=== PATIENT | female | born 1925 | race African-American/Black ===

== ENCOUNTER 2016-07-22 16:25 | Inpatient (IN) | payer MEDICARE, OTHER ==
[~2016-07-22] VITALS: Ht 149.9 cm; Wt 62.8 kg
[~2016-07-22 16:25] MED LIST: AMIO200T2 PO; AMLO-511 PO; ASPI-1132 PO; CLOP75 PO; FAMO20 PO; FURO40 PO; GABA-531 PO; LEVO25TA9 PO; LOSA50TA37 PO; METO-323 PO; NITR.4 BU; PANT40TA25 PO; ROSU20 PO
[2016-07-22 16:37] LABS: GLUCOSE,POINT OF CARE 160 MG/DL (70-110)
[2016-07-22] MEDS ORDERED: POT25TAB5 PO (16:43)
[2016-07-22] MEDS ORDERED: SITA100 PO (16:43)
[2016-07-22] MEDS ORDERED: BUME1TAB30 PO (16:43)
[2016-07-22] MEDS ORDERED: ZARO2.5 PO (16:43)
[2016-07-22] MEDS ORDERED: AUD NEB (16:43)
[2016-07-22] MEDS ORDERED: ALBUTEROL SULFATE 2.5 MG/0.5 ML NEB SOLUTION NEB ONE (16:45)
[2016-07-22] MEDS ORDERED: 0.9% SODIUM CHLORIDE 5 ML NEB SOLUTION NEB ONE (16:55)
[2016-07-22 19:30] LABS: BASOPHILS % (AUTO) 0.3 % (0.0-2.0); EOSINOPHILS % (AUTO) 0.2 % (1.0-6.0); HEMATOCRIT 38.5 % (36-46); HEMOGLOBIN 12.4 g/dL (12.0-16.0); LYMPHOCYTES # (AUTO) 0.5 K/uL (1.0-4.8); LYMPHOCYTES % (AUTO) 13.2 % (22.0-44.0); MEAN CORPUSCULAR HEMOGLOBIN 32.4 pg (26.0-34.0); MEAN CORPUSCULAR HGB CONC 32.2 G/dL (31.0-37.0); MEAN CORPUSCULAR VOLUME 101 fL (80-100); MONOCYTES # (AUTO) 0.4 K/uL (0.1-1.0); MONOCYTES % (AUTO) 8.6 % (2.0-9.0); NEUTROPHILS # (AUTO) 3.2 K/uL (1.8-7.7); NEUTROPHILS % (AUTO) 77.7 % (40.0-70.0); RED BLOOD CELL COUNT(AUTO) 3.83 MIL/uL (4.00-5.20); RED CELL DISTRIBUTION WIDTH 16.7 % (11.5-14.5); WHITE BLOOD COUNT (AUTO) 4.1 K/uL (4.5-11.0)
[2016-07-22 19:39] LABS: ANION GAP 7 mmol/L (8-16); CALCIUM, TOTAL 9.5 mg/dL (8.8-10.5); CARBON DIOXIDE 35 mmol/L (22-29); CHLORIDE 107 mmol/L (98-107); CREATININE 1.42 mg/dL (0.60-1.30); GLOMERULAR FILTR. RATE CALC 42 mL/min (>60); SODIUM SERUM 149 mmol/L (136-145); UREA NITROGEN, BLOOD 44 mg/dL (7-18)
[2016-07-22 19:51] LABS: B-TYPE NATRIURETIC PEPTIDE 1250 pg/mL (0-100)
[2016-07-22 20:00] LABS: INR 1.2 (0.9-1.1); PROTHROMBIN TIME 12.2 SEC (9.4-11.6)
[2016-07-22 20:05] LABS: ALANINE AMINOTRANSFERASE 33 U/L (12-78); ALBUMIN 3.7 g/dL (3.4-5.0); ASPARTATE AMINOTRANSFERASE 33 U/L (15-37); CREATINE KINASE, TOTAL 123 U/L (26-192); TOTAL PROTEIN, SERUM 7.5 g/dL (6.4-8.2)
[2016-07-22 20:21] LABS: PLATELET COUNT (AUTO) 77 K/uL (150-450)
[2016-07-22] MEDS ORDERED: ENOXAPARIN SODIUM 60 MG/0.6 ML PF SYRINGE SQ ONE (20:45)
[2016-07-22] MEDS ORDERED: ASPIRIN 81 MG CHEWABLE TABLET PO ONE (20:45)
[2016-07-22] MEDS: OXYGEN THERAPY IH SCH (20:55)
[2016-07-22] MEDS ORDERED: CefTRIAXone 1 GM/DEXTROSE 50 ML IV ONE (21:00)
[2016-07-22] MEDS ORDERED: ALBUTEROL SULFATE 5 MG/ML 20 ML NEB SOLN [BULK] NEB ONE (21:00)
[2016-07-22] MEDS ORDERED: IPRATROPIUM BROMIDE 0.5 MG/2.5 ML NEB SOLUTION NEB ONE (21:00)
[2016-07-22] MEDS ORDERED: MethylPREDNISolone SOD SUCC 125 MG/2 ML VIAL IVP ONE (21:00)
[2016-07-22 21:41] LABS: ADD UA MICROSCOPIC NO; APPEARANCE,URINE CLEAR (CLEAR); GLUCOSE, URINE (UA) NEGATIVE (NEGATIVE); KETONES,URINE NEGATIVE (NEGATIVE); LEUKOCYTE ESTERASE ,URINE NEGATIVE (NEGATIVE); OCCULT BLOOD,URINE NEGATIVE (NEGATIVE); PROTEIN,URINE TRACE (NEGATIVE)
[2016-07-22 22:10] LABS: LACTIC ACID 0.9 mmol/L (0.4-2.0)
[2016-07-22] MEDS ORDERED: ONDANSETRON HCL 4 MG/2 ML VIAL IVP PRN (23:45)
[2016-07-22] MEDS ORDERED: ACETAMINOPHEN 325 MG TABLET PO PRN (23:45)
[2016-07-22] MEDS ORDERED: 0.9% SODIUM CHLORIDE 10 ML SYRINGE IVP PRN (23:45)
[2016-07-22 23:58] VITALS: BP 159/87
[2016-07-23 00:46] LABS: INFLUENZA TYPE B NEGATIVE FOR TYPE B (NEGATIVE)
[2016-07-23 05:19] VITALS: BP 157/91
[2016-07-23 06:36] LABS: BASOPHILS % (AUTO) 0.1 % (0.0-2.0); EOSINOPHILS % (AUTO) 0 % (1.0-6.0); HEMATOCRIT 38.4 % (36-46); HEMOGLOBIN 12.4 g/dL (12.0-16.0); LYMPHOCYTES # (AUTO) 0.3 K/uL (1.0-4.8); LYMPHOCYTES % (AUTO) 9.7 % (22.0-44.0); MEAN CORPUSCULAR HEMOGLOBIN 32.4 pg (26.0-34.0); MEAN CORPUSCULAR HGB CONC 32.3 G/dL (31.0-37.0); MEAN CORPUSCULAR VOLUME 101 fL (80-100); MONOCYTES # (AUTO) 0.1 K/uL (0.1-1.0); MONOCYTES % (AUTO) 1.6 % (2.0-9.0); NEUTROPHILS # (AUTO) 2.9 K/uL (1.8-7.7); PLATELET COUNT (AUTO) 74 K/uL (150-450); RED BLOOD CELL COUNT(AUTO) 3.82 MIL/uL (4.00-5.20); RED CELL DISTRIBUTION WIDTH 17.3 % (11.5-14.5); WHITE BLOOD COUNT (AUTO) 3.3 K/uL (4.5-11.0)
[2016-07-23 06:47] LABS: NEUTROPHILS % (AUTO) 88.6 % (40.0-70.0)
[2016-07-23 07:21] LABS: ALBUMIN 3.5 g/dL (3.4-5.0); CREATININE 1.6 mg/dL (0.60-1.30); POTASSIUM 4.1 mmol/L (3.5-5.1); TOTAL PROTEIN, SERUM 7.3 g/dL (6.4-8.2)
[2016-07-23] MEDS: OXYGEN THERAPY IH SCH ×2 (07:26→20:47)
[2016-07-23 07:43] LABS: RBC MORPHOLOGY COMMENT ABNORMAL RBC MORPH
[2016-07-23 08:28] VITALS: BP 159/82
[2016-07-23] MEDS ORDERED: IPRATROPIUM BROMIDE 0.5 MG/2.5 ML NEB SOLUTION NEB ONE (09:45)
[2016-07-23] MEDS ORDERED: ALBUTEROL SULFATE 2.5 MG/0.5 ML NEB SOLUTION NEB ONE (09:45)
[2016-07-23 10:11] VITALS: BP 136/80
[2016-07-23] MEDS ORDERED: AMIODARONE HCL 150 MG in DEXTROSE 5%-WATER 97 ML IV ONE (10:35)
[2016-07-23] MEDS ORDERED: AMIODARONE HCL 360 MG in DEXTROSE 5%-WATER 242.8 ML IV ONE (10:45)
[2016-07-23] MEDS ORDERED: MORPHINE SULFATE 2 MG/ML SYRINGE IVP PRN (10:45)
[2016-07-23] MEDS ORDERED: ASPIRIN 81 MG CHEWABLE TABLET PO SCH (10:45)
[2016-07-23] MEDS: ALBUTEROL SULFATE 2.5 MG/0.5 ML NEB SOLUTION NEB SCH ×4 (11:00→23:01)
[2016-07-23] MEDS: GABAPENTIN 300 MG CAPSULE PO SCH (11:00)
[2016-07-23 11:07] LABS: GLUCOSE,POINT OF CARE 239 MG/DL (70-110)
[2016-07-23 11:07] LABS: GLUCOSE,POINT OF CARE 290 MG/DL (70-110)
[2016-07-23] MEDS: LEVOTHYROXINE SODIUM 100 MCG TABLET PO SCH (11:48)
[2016-07-23] MEDS: LOSARTAN POTASSIUM 50 MG TABLET PO SCH (11:49)
[2016-07-23] MEDS: CLOPIDOGREL BISULFATE 75 MG TABLET PO SCH (11:53)
[2016-07-23] MEDS: ASPIRIN 81 MG EC TABLET PO SCH (11:54)
[2016-07-23] MEDS: BUMETANIDE 1 MG TABLET PO SCH ×2 (11:55→20:48)
[2016-07-23] MEDS ORDERED: NITROGLYCERIN 2% (1 GM=INCH) PACKET TP SCH (12:00)
[2016-07-23 14:36] LABS: GLUCOSE,POINT OF CARE 250 MG/DL (70-110)
[2016-07-23] MEDS ORDERED: 0.9% SODIUM CHLORIDE 5 ML NEB SOLUTION NEB ONE ×2 (15:15→22:57)
[2016-07-23 16:14] VITALS: BP 147/106
[2016-07-23] MEDS ORDERED: AMIODARONE HCL 540 MG in DEXTROSE 5%-WATER 239.2 ML IV ONE (16:45)
[2016-07-23] MEDS ORDERED: NITROGLYCERIN 2% (1 GM=INCH) PACKET TP PRN (17:00)
[2016-07-23] MEDS ORDERED: ONDANSETRON HCL 4 MG/2 ML VIAL IVP PRN (17:00)
[2016-07-23] MEDS ORDERED: ACETAMINOPHEN 325 MG TABLET PO PRN (17:00)
[2016-07-23] MEDS ORDERED: DEXTROSE 50%-WATER 25 GM/50 ML SYRINGE IVP PRN (17:00)
[2016-07-23] MEDS: NITROGLYCERIN 2% (1 GM=INCH) PACKET TP SCH (17:43)
[2016-07-23] MEDS: INSULIN ASPART 100 UNITS/ML SQ PRN ×2 (17:53→20:55)
[2016-07-23 19:26] VITALS: BP 133/87
[2016-07-23] MEDS: METOPROLOL SUCCINATE 25 MG ER TABLET PO SCH (20:48)
[2016-07-23 23:25] VITALS: BP 125/96
[2016-07-24] MEDS: HEPARIN SODIUM,PORCINE 5,000 UNITS/ML VIAL SQ SCH ×2 (00:27→16:00)
[2016-07-24] MEDS: NITROGLYCERIN 2% (1 GM=INCH) PACKET TP SCH ×4 (00:27→18:10)
[2016-07-24] MEDS ORDERED: 0.9% SODIUM CHLORIDE 5 ML NEB SOLUTION NEB ONE ×6 (02:45→23:09)
[2016-07-24] MEDS: ALBUTEROL SULFATE 2.5 MG/0.5 ML NEB SOLUTION NEB SCH ×6 (02:50→23:19)
[2016-07-24 04:02] LABS: GLUCOSE COMMENT 1 Received Meds; GLUCOSE,POINT OF CARE 264 MG/DL (70-110)
[2016-07-24 04:28] VITALS: BP 134/89
[2016-07-24] MEDS: LEVOTHYROXINE SODIUM 100 MCG TABLET PO SCH (06:02)
[2016-07-24 06:31] LABS: GLUCOSE,POINT OF CARE 81 MG/DL (70-110)
[2016-07-24 06:41] LABS: BASOPHILS % (AUTO) 0.4 % (0.0-2.0); EOSINOPHILS % (AUTO) 0 % (1.0-6.0); HEMOGLOBIN 12.2 g/dL (12.0-16.0); LYMPHOCYTES # (AUTO) 0.7 K/uL (1.0-4.8); LYMPHOCYTES % (AUTO) 10.6 % (22.0-44.0); MEAN CORPUSCULAR HEMOGLOBIN 32.3 pg (26.0-34.0); MEAN CORPUSCULAR HGB CONC 32.1 G/dL (31.0-37.0); MEAN CORPUSCULAR VOLUME 101 fL (80-100); MONOCYTES # (AUTO) 0.6 K/uL (0.1-1.0); MONOCYTES % (AUTO) 9.1 % (2.0-9.0); NEUTROPHILS # (AUTO) 5.1 K/uL (1.8-7.7); NEUTROPHILS % (AUTO) 79.9 % (40.0-70.0); PLATELET COUNT (AUTO) 92 K/uL (150-450); RED BLOOD CELL COUNT(AUTO) 3.78 MIL/uL (4.00-5.20); RED CELL DISTRIBUTION WIDTH 16.7 % (11.5-14.5); WHITE BLOOD COUNT (AUTO) 6.4 K/uL (4.5-11.0)
[2016-07-24 07:11] LABS: RBC MORPHOLOGY COMMENT ABNORMAL RBC MORPH
[2016-07-24 07:22] VITALS: BP 129/85
[2016-07-24] MEDS: OXYGEN THERAPY IH SCH ×2 (07:25→20:20)
[2016-07-24 07:27] LABS: ALBUMIN 3.3 g/dL (3.4-5.0); BILIRUBIN,TOTAL 0.8 mg/dL (0.1-1.0); CALCIUM, TOTAL 8.5 mg/dL (8.8-10.5); CREATININE 1.66 mg/dL (0.60-1.30); POTASSIUM 3.4 mmol/L (3.5-5.1); THYROID STIMULATING HORMONE 5.02 uIU/mL (0.36-3.74); TOTAL PROTEIN, SERUM 6.8 g/dL (6.4-8.2)
[2016-07-24] MEDS: PANTOPRAZOLE SODIUM 40 MG DR TABLET PO SCH (08:34)
[2016-07-24] MEDS: GABAPENTIN 300 MG CAPSULE PO SCH (08:34)
[2016-07-24] MEDS: ASPIRIN 81 MG EC TABLET PO SCH (08:34)
[2016-07-24] MEDS: CLOPIDOGREL BISULFATE 75 MG TABLET PO SCH (08:34)
[2016-07-24] MEDS: METOPROLOL SUCCINATE 25 MG ER TABLET PO SCH ×2 (08:37→20:20)
[2016-07-24] MEDS: SitaGLIPtin PHOSPHATE 100 MG TABLET PO SCH (09:00)
[2016-07-24] MEDS ORDERED: AMIODARONE HCL 200 MG TABLET PO SCH (09:00)
[2016-07-24] MEDS ORDERED: AMIODARONE HCL 750 MG in DEXTROSE 5%-WATER 485 ML IV SCH (10:45)
[2016-07-24 10:48] VITALS: BP 143/90
[2016-07-24] MEDS: LOSARTAN POTASSIUM 50 MG TABLET PO SCH (11:09)
[2016-07-24] MEDS: BUMETANIDE 1 MG TABLET PO SCH ×2 (11:10→20:21)
[2016-07-24] MEDS ORDERED: POTASSIUM CHLORIDE 10% 40 MEQ/30 ML LIQUID UDCUP PO ONE (13:00)
[2016-07-24 16:00] VITALS: BP 123/88
[2016-07-24 19:55] VITALS: BP 107/78
[2016-07-24 23:43] VITALS: BP 126/90
[2016-07-25] MEDS: NITROGLYCERIN 2% (1 GM=INCH) PACKET TP SCH ×4 (00:18→18:49)
[2016-07-25] MEDS: AMIODARONE HCL 200 MG TABLET PO SCH ×3 (00:18→20:53)
[2016-07-25] MEDS: ALBUTEROL SULFATE 2.5 MG/0.5 ML NEB SOLUTION NEB SCH ×7 (02:35→23:00)
[2016-07-25 05:07] VITALS: BP 146/86
[2016-07-25] MEDS: LEVOTHYROXINE SODIUM 100 MCG TABLET PO SCH (05:45)
[2016-07-25] MEDS: INSULIN ASPART 100 UNITS/ML SQ PRN ×3 (05:46→17:48)
[2016-07-25 06:00] LABS: BASOPHILS # (AUTO) 0.01 K/uL (0.00-0.20); BASOPHILS % (AUTO) 0.3 % (0.0-2.0); EOSINOPHILS # (AUTO) 0.01 K/uL (0.00-0.70); HEMATOCRIT 35.5 % (36-46); HEMOGLOBIN 11.7 g/dL (12.0-16.0); LYMPHOCYTES # (AUTO) 0.6 K/uL (1.0-4.8); LYMPHOCYTES % (AUTO) 13.7 % (22.0-44.0); MEAN CORPUSCULAR HEMOGLOBIN 33.1 pg (26.0-34.0); MEAN CORPUSCULAR HGB CONC 33.1 G/dL (31.0-37.0); MEAN CORPUSCULAR VOLUME 100 fL (80-100); MONOCYTES # (AUTO) 0.5 K/uL (0.1-1.0); MONOCYTES % (AUTO) 10.2 % (2.0-9.0); NEUTROPHILS # (AUTO) 3.4 K/uL (1.8-7.7); NEUTROPHILS % (AUTO) 75.5 % (40.0-70.0); PLATELET COUNT (AUTO) 77 K/uL (150-450); RED BLOOD CELL COUNT(AUTO) 3.54 MIL/uL (4.00-5.20); RED CELL DISTRIBUTION WIDTH 17.5 % (11.5-14.5); WHITE BLOOD COUNT (AUTO) 4.4 K/uL (4.5-11.0)
[2016-07-25 06:22] LABS: GLUCOSE,POINT OF CARE 129 MG/DL (70-110)
[2016-07-25 06:22] LABS: GLUCOSE COMMENT 1 Received Meds; GLUCOSE,POINT OF CARE 208 MG/DL (70-110)
[2016-07-25 06:22] LABS: GLUCOSE,POINT OF CARE 103 MG/DL (70-110)
[2016-07-25 06:25] LABS: ALBUMIN 3.2 g/dL (3.4-5.0); BILIRUBIN,TOTAL 0.6 mg/dL (0.1-1.0); CALCIUM, TOTAL 8.5 mg/dL (8.8-10.5); CHOL/HDL RATIO 2.5 (3.9-5.7); CREATININE 1.92 mg/dL (0.60-1.30); POTASSIUM 3.8 mmol/L (3.5-5.1); TOTAL PROTEIN, SERUM 6.6 g/dL (6.4-8.2)
[2016-07-25] MEDS ORDERED: 0.9% SODIUM CHLORIDE 5 ML NEB SOLUTION NEB ONE ×4 (07:08→19:37)
[2016-07-25 07:33] VITALS: BP 124/79
[2016-07-25] MEDS: SitaGLIPtin PHOSPHATE 100 MG TABLET PO SCH (08:49)
[2016-07-25] MEDS: OXYGEN THERAPY IH SCH ×2 (08:49→20:53)
[2016-07-25] MEDS: HEPARIN SODIUM,PORCINE 5,000 UNITS/ML VIAL SQ SCH ×3 (08:49→15:56)
[2016-07-25] MEDS: METOPROLOL SUCCINATE 25 MG ER TABLET PO SCH ×2 (08:50→20:53)
[2016-07-25] MEDS: ASPIRIN 81 MG EC TABLET PO SCH (08:50)
[2016-07-25] MEDS: CLOPIDOGREL BISULFATE 75 MG TABLET PO SCH (08:50)
[2016-07-25] MEDS: PANTOPRAZOLE SODIUM 40 MG DR TABLET PO SCH (08:50)
[2016-07-25] MEDS: LOSARTAN POTASSIUM 50 MG TABLET PO SCH (08:50)
[2016-07-25] MEDS: GABAPENTIN 300 MG CAPSULE PO SCH (08:50)
[2016-07-25 11:24] VITALS: BP 127/77
[2016-07-25] MEDS ORDERED: METOLAZONE 2.5 MG TABLET PO SCH (14:30)
[2016-07-25 15:19] VITALS: BP 123/83
[2016-07-25 19:14] VITALS: BP 115/76
[2016-07-25 23:48] VITALS: BP 110/73
[2016-07-26] MEDS: NITROGLYCERIN 2% (1 GM=INCH) PACKET TP SCH ×4 (01:05→18:00)
[2016-07-26] MEDS: ALBUTEROL SULFATE 2.5 MG/0.5 ML NEB SOLUTION NEB SCH ×6 (03:00→23:00)
[2016-07-26 05:27] VITALS: BP 117/79
[2016-07-26] MEDS: LEVOTHYROXINE SODIUM 100 MCG TABLET PO SCH (05:35)
[2016-07-26 06:41] LABS: CALCIUM, TOTAL 8.2 mg/dL (8.8-10.5); CREATININE 1.61 mg/dL (0.60-1.30); POTASSIUM 3.2 mmol/L (3.5-5.1)
[2016-07-26 06:52] LABS: GLUCOSE COMMENT 1 Received Meds; GLUCOSE,POINT OF CARE 149 MG/DL (70-110)
[2016-07-26] MEDS ORDERED: 0.9% SODIUM CHLORIDE 5 ML NEB SOLUTION NEB ONE ×3 (07:14→19:21)
[2016-07-26 08:24] VITALS: BP 138/84
[2016-07-26] MEDS: ASPIRIN 81 MG EC TABLET PO SCH (08:37)
[2016-07-26] MEDS: SitaGLIPtin PHOSPHATE 100 MG TABLET PO SCH (08:37)
[2016-07-26] MEDS: METOPROLOL SUCCINATE 25 MG ER TABLET PO SCH ×2 (08:37→21:08)
[2016-07-26] MEDS: LOSARTAN POTASSIUM 50 MG TABLET PO SCH (08:37)
[2016-07-26] MEDS: AMIODARONE HCL 200 MG TABLET PO SCH ×2 (08:37→21:08)
[2016-07-26] MEDS: CLOPIDOGREL BISULFATE 75 MG TABLET PO SCH (08:37)
[2016-07-26] MEDS: PANTOPRAZOLE SODIUM 40 MG DR TABLET PO SCH (08:37)
[2016-07-26] MEDS: GABAPENTIN 300 MG CAPSULE PO SCH (08:38)
[2016-07-26] MEDS: HEPARIN SODIUM,PORCINE 5,000 UNITS/ML VIAL SQ SCH ×3 (08:38→17:03)
[2016-07-26] MEDS: OXYGEN THERAPY IH SCH ×2 (08:45→19:23)
[2016-07-26 11:12] VITALS: BP 113/70
[2016-07-26] MEDS: INSULIN ASPART 100 UNITS/ML SQ PRN ×2 (12:03→17:59)
[2016-07-26 15:45] VITALS: BP 129/72
[2016-07-26] MEDS ORDERED: POTASSIUM CHLORIDE 20 MEQ ER TABLET PO ONE (16:45)
[2016-07-26] MEDS ORDERED: LACTULOSE 20 GM/30 ML SOLUTION UDCUP PO ONE (16:45)
[2016-07-26 20:03] LABS: GLUCOSE COMMENT 1 Received Meds; GLUCOSE,POINT OF CARE 148 MG/DL (70-110)
[2016-07-26 20:05] VITALS: BP 125/76
[2016-07-26 23:47] VITALS: BP 108/67
[2016-07-27] MEDS: NITROGLYCERIN 2% (1 GM=INCH) PACKET TP SCH ×4 (00:27→17:25)
[2016-07-27] MEDS: HEPARIN SODIUM,PORCINE 5,000 UNITS/ML VIAL SQ SCH ×3 (00:27→16:49)
[2016-07-27 00:35] VITALS: BP 126/68
[2016-07-27] MEDS ORDERED: 0.9% SODIUM CHLORIDE 5 ML NEB SOLUTION NEB ONE ×3 (01:39→11:11)
[2016-07-27] MEDS: ALBUTEROL SULFATE 2.5 MG/0.5 ML NEB SOLUTION NEB SCH ×4 (03:53→15:36)
[2016-07-27 04:31] VITALS: BP 127/86
[2016-07-27] MEDS: LEVOTHYROXINE SODIUM 100 MCG TABLET PO SCH (06:21)
[2016-07-27 06:51] LABS: GLUCOSE COMMENT 1 Received Meds; GLUCOSE,POINT OF CARE 162 MG/DL (70-110)
[2016-07-27 07:06] VITALS: BP 157/91
[2016-07-27] MEDS: OXYGEN THERAPY IH SCH (08:45)
[2016-07-27] MEDS: ASPIRIN 81 MG EC TABLET PO SCH (08:46)
[2016-07-27] MEDS: LOSARTAN POTASSIUM 50 MG TABLET PO SCH (08:46)
[2016-07-27] MEDS: CLOPIDOGREL BISULFATE 75 MG TABLET PO SCH (08:47)
[2016-07-27] MEDS: SitaGLIPtin PHOSPHATE 100 MG TABLET PO SCH (08:47)
[2016-07-27] MEDS: AMIODARONE HCL 200 MG TABLET PO SCH (08:47)
[2016-07-27] MEDS: GABAPENTIN 300 MG CAPSULE PO SCH (08:47)
[2016-07-27] MEDS: PANTOPRAZOLE SODIUM 40 MG DR TABLET PO SCH (08:48)
[2016-07-27] MEDS: METOPROLOL SUCCINATE 25 MG ER TABLET PO SCH (08:48)
[2016-07-27 11:16] VITALS: BP 126/75
[2016-07-27] MEDS: INSULIN ASPART 100 UNITS/ML SQ PRN ×2 (11:51→17:33)
[2016-07-27 12:07] LABS: GLUCOSE COMMENT 1 Received Meds; GLUCOSE,POINT OF CARE 209 MG/DL (70-110)
[2016-07-27 15:41] VITALS: BP 116/79
[2016-07-27] MEDS ORDERED: AMIO200T44 PO (15:50)
[2016-07-27] MEDS ORDERED: BUME1TAB30 PO (15:51)
[2016-07-27 19:27] LABS: GLUCOSE,POINT OF CARE 127 MG/DL (70-110)
[2016-07-30 14:07] LABS: GLUCOSE COMMENT 1 Received Meds; GLUCOSE,POINT OF CARE 243 MG/DL (70-110)
[2016-07-30 14:12] LABS: GLUCOSE,POINT OF CARE 208 MG/DL (70-110)
[2016-07-30 14:12] LABS: GLUCOSE COMMENT 1 Received Meds; GLUCOSE,POINT OF CARE 150 MG/DL (70-110)
[2016-07-30 14:12] LABS: GLUCOSE COMMENT 1 Received Meds; GLUCOSE,POINT OF CARE 171 MG/DL (70-110)
[2016-07-30 14:12] LABS: GLUCOSE,POINT OF CARE 183 MG/DL (70-110)
[2016-08-05 06:58] LABS: GLUCOSE,POINT OF CARE 114 MG/DL (70-110)
[2016-08-06] MEDS ORDERED: METOLAZONE 2.5 MG TABLET PO SCH (09:00)
[2016-11-01] MEDS ORDERED: AUD NEB (12:52)
[2016-11-01] MEDS ORDERED: ACET250T27 PO ×2 (12:52→12:53)
[2016-11-01] MEDS ORDERED: FLUT16H NASAL (13:12)
[2016-11-01] MEDS ORDERED: METO-325 PO (13:13)
[2016-11-01] MEDS ORDERED: LEVO250 PO (13:15)
== END 2016-07-27 18:30 | disposition home or self-care (01) | DRG 280 ==
LOC: EMS 16:28 → AHU 07-23 07:26 → 5N 07-23 15:55 → 5S 07-26 18:00
PROVIDERS: ADMIT Family Medicine; ATTEND Family Medicine
DX: I21.4 Non-ST elevation (NSTEMI) myocardial infarction (principal); I50.23 Acute on chronic systolic (congestive) heart failure; I48.91 Unspecified atrial fibrillation; J44.9 Chronic obstructive pulmonary disease, unspecified; E11.9 Type 2 diabetes mellitus without complications; E78.5 Hyperlipidemia, unspecified; I11.0 Hypertensive heart disease with heart failure; D69.6 Thrombocytopenia, unspecified; I25.10 Atherosclerotic heart disease of native coronary artery without angina pectoris; I25.5 Ischemic cardiomyopathy; J45.909 Unspecified asthma, uncomplicated; N28.9 Disorder of kidney and ureter, unspecified; Z99.81 Dependence on supplemental oxygen; I25.2 Old myocardial infarction; Z95.5 Presence of coronary angioplasty implant and graft; Z98.890 Other specified postprocedural states; Z88.8 Allergy status to other drugs, medicaments and biological substances; Z88.1 Allergy status to other antibiotic agents; Z79.02 Long term (current) use of antithrombotics/antiplatelets; Z79.899 Other long term (current) drug therapy
CPT/HCPCS: 82962; 83036; 83605; 83735; 84132; 84443; 85379; 87040; 87804; 93005; 93306; 94640; 96365; 96366; 96372; 96375; 97162; 97166; 99291; J0282; J0696; J1644; J1650; J2930; J7060

== ENCOUNTER 2016-07-29 07:34 | Inpatient (IN) | payer MEDICARE ==
[~2016-07-29] VITALS: Ht 149.9 cm; Wt 55.3 kg
[~2016-07-29 07:34] MED LIST changes: +AMIO200T44 PO; +AUD NEB; +BUME1TAB30 PO; +POT25TAB5 PO; +SITA100 PO; +ZARO2.5 PO
[2016-07-29] MEDS ORDERED: FOLI1 PO (07:44)
[2016-07-29] MEDS ORDERED: METO100XL PO (07:44)
[2016-07-29] MEDS ORDERED: BENZ-26 PO (07:44)
[2016-07-29] MEDS ORDERED: ATOR40TA28 PO (07:44)
[2016-07-29 08:28] LABS: BASOPHILS % (AUTO) 0.5 % (0.0-2.0); EOSINOPHILS % (AUTO) 0.9 % (1.0-6.0); HEMATOCRIT 41.3 % (36-46); HEMOGLOBIN 13.4 g/dL (12.0-16.0); LYMPHOCYTES # (AUTO) 0.5 K/uL (1.0-4.8); LYMPHOCYTES % (AUTO) 13.2 % (22.0-44.0); MEAN CORPUSCULAR HEMOGLOBIN 32.7 pg (26.0-34.0); MEAN CORPUSCULAR HGB CONC 32.3 G/dL (31.0-37.0); MEAN CORPUSCULAR VOLUME 101 fL (80-100); MONOCYTES # (AUTO) 0.3 K/uL (0.1-1.0); MONOCYTES % (AUTO) 7.1 % (2.0-9.0); NEUTROPHILS # (AUTO) 3.1 K/uL (1.8-7.7); NEUTROPHILS % (AUTO) 78.3 % (40.0-70.0); PLATELET COUNT (AUTO) 103 K/uL (150-450); RED BLOOD CELL COUNT(AUTO) 4.08 MIL/uL (4.00-5.20); WHITE BLOOD COUNT (AUTO) 3.9 K/uL (4.5-11.0)
[2016-07-29 08:37] LABS: ANION GAP 8 mmol/L (8-16); CALCIUM, TOTAL 8.6 mg/dL (8.8-10.5); CARBON DIOXIDE 35 mmol/L (22-29); CHLORIDE 101 mmol/L (98-107); CREATININE 1.23 mg/dL (0.60-1.30); GLOMERULAR FILTR. RATE CALC 50 mL/min (>60); POTASSIUM 3.5 mmol/L (3.5-5.1); SODIUM SERUM 144 mmol/L (136-145); UREA NITROGEN, BLOOD 36 mg/dL (7-18)
[2016-07-29] MEDS ORDERED: IPRATROPIUM BROMIDE 0.5 MG/2.5 ML NEB SOLUTION NEB ONE (08:45)
[2016-07-29] MEDS ORDERED: ALBUTEROL SULFATE 2.5 MG/0.5 ML NEB SOLUTION NEB ONE (08:45)
[2016-07-29 08:51] LABS: B-TYPE NATRIURETIC PEPTIDE 1010 pg/mL (0-100)
[2016-07-29 09:02] LABS: ALANINE AMINOTRANSFERASE 26 U/L (12-78); ALBUMIN 3.5 g/dL (3.4-5.0); ASPARTATE AMINOTRANSFERASE 27 U/L (15-37); CREATINE KINASE MB 1.8 ng/mL (0-5); CREATINE KINASE, TOTAL 100 U/L (26-192); TOTAL PROTEIN, SERUM 7.5 g/dL (6.4-8.2)
[2016-07-29 09:23] LABS: RBC MORPHOLOGY COMMENT ABNORMAL RBC MORPH
[2016-07-29] MEDS ORDERED: NITROGLYCERIN 2% (1 GM=INCH) PACKET TP ONE (11:00)
[2016-07-29] MEDS ORDERED: ASPIRIN 81 MG CHEWABLE TABLET PO ONE (11:00)
[2016-07-29 11:25] LABS: APPEARANCE,URINE CLEAR (CLEAR); GLUCOSE, URINE (UA) NEGATIVE (NEGATIVE); KETONES,URINE NEGATIVE (NEGATIVE); LEUKOCYTE ESTERASE ,URINE NEGATIVE (NEGATIVE); OCCULT BLOOD,URINE NEGATIVE (NEGATIVE); PH,URINE 6.5 (5.0-8.0); PROTEIN,URINE NEGATIVE (NEGATIVE)
[2016-07-29 11:32] LABS: ADD UA MICROSCOPIC NO
[2016-07-29 11:34] VITALS: BP 143/97
[2016-07-29] MEDS ORDERED: ONDANSETRON HCL 4 MG/2 ML VIAL IVP PRN (13:45)
[2016-07-29] MEDS ORDERED: IPRATROPIUM BROMIDE 0.5 MG/2.5 ML NEB SOLUTION NEB PRN (13:45)
[2016-07-29] MEDS ORDERED: BISACODYL 10 MG RECTAL RECTAL SUPPOSITORY PR PRN (13:45)
[2016-07-29] MEDS ORDERED: MAGNESIUM HYDROXIDE SUSPENSION 30 ML UDCUP PO PRN (13:45)
[2016-07-29] MEDS ORDERED: ALBUTEROL SULFATE 2.5 MG/0.5 ML NEB SOLUTION NEB PRN (13:45)
[2016-07-29] MEDS ORDERED: MORPHINE SULFATE 2 MG/ML SYRINGE IVP PRN (14:00)
[2016-07-29] MEDS ORDERED: DEXTROSE 50%-WATER 25 GM/50 ML SYRINGE IVP PRN (14:15)
[2016-07-29 15:09] VITALS: BP 118/73
[2016-07-29] MEDS: NITROGLYCERIN 2% (1 GM=INCH) PACKET TP SCH (17:52)
[2016-07-29] MEDS: INSULIN ASPART 100 UNITS/ML SQ PRN ×2 (17:56→20:14)
[2016-07-29 19:20] VITALS: BP 123/73
[2016-07-29] MEDS: BUMETANIDE 0.25 MG/ML 10 ML VIAL IVP SCH (20:18)
[2016-07-29] MEDS: BENZONATATE 100 MG CAPSULE PO SCH (20:18)
[2016-07-29] MEDS: ATORVASTATIN CALCIUM 40 MG TABLET PO SCH (20:18)
[2016-07-29] MEDS ORDERED: FUROSEMIDE 20 MG/2 ML VIAL IVP SCH (21:00)
[2016-07-29 21:01] LABS: GLUCOSE,POINT OF CARE 132 MG/DL (70-110)
[2016-07-29 21:02] LABS: GLUCOSE COMMENT 1 Received Meds; GLUCOSE,POINT OF CARE 165 MG/DL (70-110)
[2016-07-29 21:02] LABS: GLUCOSE COMMENT 1 Received Meds; GLUCOSE,POINT OF CARE 162 MG/DL (70-110)
[2016-07-29 23:21] VITALS: BP 117/78
[2016-07-29] MEDS: ACETAMINOPHEN 500 MG TABLET PO PRN (23:25)
[2016-07-30 04:54] VITALS: BP 135/87
[2016-07-30 05:28] LABS: BASOPHILS % (AUTO) 0.3 % (0.0-2.0); EOSINOPHILS % (AUTO) 0.3 % (1.0-6.0); HEMATOCRIT 36.5 % (36-46); HEMOGLOBIN 11.8 g/dL (12.0-16.0); LYMPHOCYTES # (AUTO) 0.5 K/uL (1.0-4.8); MEAN CORPUSCULAR HEMOGLOBIN 32.6 pg (26.0-34.0); MEAN CORPUSCULAR HGB CONC 32.2 G/dL (31.0-37.0); MEAN CORPUSCULAR VOLUME 101 fL (80-100); MONOCYTES # (AUTO) 0.4 K/uL (0.1-1.0); MONOCYTES % (AUTO) 9.4 % (2.0-9.0); NEUTROPHILS # (AUTO) 3.7 K/uL (1.8-7.7); PLATELET COUNT (AUTO) 101 K/uL (150-450); RED BLOOD CELL COUNT(AUTO) 3.61 MIL/uL (4.00-5.20); RED CELL DISTRIBUTION WIDTH 17.4 % (11.5-14.5); WHITE BLOOD COUNT (AUTO) 4.6 K/uL (4.5-11.0)
[2016-07-30] MEDS: NITROGLYCERIN 2% (1 GM=INCH) PACKET TP SCH ×5 (05:44→23:50)
[2016-07-30 06:24] LABS: ANION GAP 5 mmol/L (8-16); CALCIUM, TOTAL 8.2 mg/dL (8.8-10.5); CARBON DIOXIDE 35 mmol/L (22-29); CHLORIDE 104 mmol/L (98-107); CHOL/HDL RATIO 2.1 (3.9-5.7); CREATINE KINASE, TOTAL 72 U/L (26-192); CREATININE 1.23 mg/dL (0.60-1.30); GLOMERULAR FILTR. RATE CALC 50 mL/min (>60); POTASSIUM 3.9 mmol/L (3.5-5.1); SODIUM SERUM 144 mmol/L (136-145); THYROID STIMULATING HORMONE 3.97 uIU/mL (0.36-3.74); UREA NITROGEN, BLOOD 34 mg/dL (7-18)
[2016-07-30 07:02] LABS: HEMOGLOBIN A1C 7.8 % (4.5-6.2)
[2016-07-30 07:17] VITALS: BP 135/81
[2016-07-30 07:44] LABS: RBC MORPHOLOGY COMMENT ABNORMAL RBC MORPH
[2016-07-30 09:07] LABS: GLUCOSE,POINT OF CARE 77 MG/DL (70-110)
[2016-07-30] MEDS: ENOXAPARIN SODIUM 40 MG/0.4 ML PF SYRINGE SQ SCH (10:47)
[2016-07-30] MEDS: GABAPENTIN 300 MG CAPSULE PO SCH (10:51)
[2016-07-30] MEDS: AMIODARONE HCL 200 MG TABLET PO SCH (10:52)
[2016-07-30] MEDS: ACETAMINOPHEN 500 MG TABLET PO PRN (10:52)
[2016-07-30] MEDS: BENZONATATE 100 MG CAPSULE PO SCH ×2 (10:53→20:38)
[2016-07-30] MEDS: CLOPIDOGREL BISULFATE 75 MG TABLET PO SCH (10:53)
[2016-07-30] MEDS: METOPROLOL SUCCINATE 50 MG ER TABLET PO SCH (10:53)
[2016-07-30] MEDS: LOSARTAN POTASSIUM 50 MG TABLET PO SCH (10:53)
[2016-07-30] MEDS: ASPIRIN 81 MG EC TABLET PO SCH (10:53)
[2016-07-30] MEDS: FOLIC ACID 1 MG TABLET PO SCH (10:53)
[2016-07-30 11:32] VITALS: BP 143/82
[2016-07-30] MEDS: PANTOPRAZOLE SODIUM 40 MG/VIAL IVP SCH (14:12)
[2016-07-30] MEDS: BUMETANIDE 0.25 MG/ML 10 ML VIAL IVP SCH ×2 (14:19→20:38)
[2016-07-30 15:49] VITALS: BP 121/70
[2016-07-30] MEDS: INSULIN ASPART 100 UNITS/ML SQ PRN ×2 (17:50→20:42)
[2016-07-30] MEDS: MAGNESIUM OXIDE 400 MG TABLET PO PRN ×3 (18:57→23:50)
[2016-07-30] MEDS ORDERED: 0.9% SODIUM CHLORIDE 10 ML SYRINGE IVP PRN (20:00)
[2016-07-30 20:18] VITALS: BP 121/75
[2016-07-30] MEDS: ATORVASTATIN CALCIUM 40 MG TABLET PO SCH (20:38)
[2016-07-31 00:09] VITALS: BP 100/69
[2016-07-31 05:47] VITALS: BP 139/83
[2016-07-31 05:58] LABS: GLUCOSE,POINT OF CARE 117 MG/DL (70-110)
[2016-07-31] MEDS: LEVOTHYROXINE SODIUM 50 MCG TABLET PO SCH (06:02)
[2016-07-31] MEDS: NITROGLYCERIN 2% (1 GM=INCH) PACKET TP SCH ×3 (06:02→17:53)
[2016-07-31 06:11] LABS: GLUCOSE,POINT OF CARE 121 MG/DL (70-110)
[2016-07-31 06:39] LABS: INR 1.1 (0.9-1.1)
[2016-07-31 06:50] LABS: BASOPHILS % (AUTO) 0.7 % (0.0-2.0); HEMATOCRIT 37.6 % (36-46); HEMOGLOBIN 12.1 g/dL (12.0-16.0); LYMPHOCYTES # (AUTO) 0.6 K/uL (1.0-4.8); LYMPHOCYTES % (AUTO) 16.1 % (22.0-44.0); MEAN CORPUSCULAR HEMOGLOBIN 32.8 pg (26.0-34.0); MEAN CORPUSCULAR HGB CONC 32.2 G/dL (31.0-37.0); MEAN CORPUSCULAR VOLUME 102 fL (80-100); MONOCYTES # (AUTO) 0.3 K/uL (0.1-1.0); MONOCYTES % (AUTO) 9.2 % (2.0-9.0); NEUTROPHILS # (AUTO) 2.7 K/uL (1.8-7.7); PLATELET COUNT (AUTO) 114 K/uL (150-450); RED BLOOD CELL COUNT(AUTO) 3.68 MIL/uL (4.00-5.20); RED CELL DISTRIBUTION WIDTH 17.4 % (11.5-14.5); WHITE BLOOD COUNT (AUTO) 3.7 K/uL (4.5-11.0)
[2016-07-31 07:28] LABS: CALCIUM, TOTAL 7.9 mg/dL (8.8-10.5); CREATININE 1.06 mg/dL (0.60-1.30); MAGNESIUM 1.7 mg/dL (1.80-2.40); PHOSPHORUS 3.5 mg/dL (2.5-4.9); POTASSIUM 3.4 mmol/L (3.5-5.1); TOTAL PROTEIN, SERUM 6.3 g/dL (6.4-8.2)
[2016-07-31 07:57] VITALS: BP 143/81
[2016-07-31] MEDS: PANTOPRAZOLE SODIUM 40 MG/VIAL IVP SCH (09:37)
[2016-07-31] MEDS: BUMETANIDE 0.25 MG/ML 10 ML VIAL IVP SCH (09:43)
[2016-07-31 10:33] LABS: RBC MORPHOLOGY COMMENT ABNORMAL RBC MORPH
[2016-07-31] MEDS ORDERED: POTASSIUM CHLORIDE 20 MEQ ER TABLET PO PRN (11:15)
[2016-07-31 11:44] VITALS: BP 135/82
[2016-07-31] MEDS: BENZONATATE 100 MG CAPSULE PO SCH ×2 (14:09→21:38)
[2016-07-31] MEDS: FOLIC ACID 1 MG TABLET PO SCH (14:09)
[2016-07-31] MEDS: ASPIRIN 81 MG EC TABLET PO SCH (14:10)
[2016-07-31] MEDS: GABAPENTIN 300 MG CAPSULE PO SCH (14:10)
[2016-07-31] MEDS: AMIODARONE HCL 200 MG TABLET PO SCH (14:10)
[2016-07-31] MEDS: LOSARTAN POTASSIUM 50 MG TABLET PO SCH (14:11)
[2016-07-31] MEDS: METOPROLOL SUCCINATE 50 MG ER TABLET PO SCH (14:11)
[2016-07-31] MEDS: CLOPIDOGREL BISULFATE 75 MG TABLET PO SCH (14:11)
[2016-07-31] MEDS: ENOXAPARIN SODIUM 40 MG/0.4 ML PF SYRINGE SQ SCH (14:12)
[2016-07-31 14:16] LABS: APPEARANCE,UNSPUN,BODY FLUID CLOUDY (CLEAR)
[2016-07-31 14:17] LABS: COLOR,BODY FLUID DARK YELLOW (LT YELLOW)
[2016-07-31 14:18] LABS: BODY FLUID RBC 1572.5 /cu. mm.
[2016-07-31 14:23] LABS: GLUCOSE COMMENT 1 Received Meds; GLUCOSE,POINT OF CARE 143 MG/DL (70-110)
[2016-07-31 15:31] VITALS: BP 111/72
[2016-07-31] MEDS: MAGNESIUM OXIDE 400 MG TABLET PO PRN ×2 (16:13→21:40)
[2016-07-31] MEDS: INSULIN ASPART 100 UNITS/ML SQ PRN ×2 (18:05→21:49)
[2016-07-31 19:27] VITALS: BP 97/66
[2016-07-31] MEDS: BUMETANIDE 1 MG TABLET PO SCH (21:39)
[2016-07-31] MEDS: ATORVASTATIN CALCIUM 40 MG TABLET PO SCH (21:39)
[2016-08-01] VITALS (7 sets, daily range): BP systolic 93–113; BP diastolic 52–69
[2016-08-01] MEDS: NITROGLYCERIN 2% (1 GM=INCH) PACKET TP SCH ×5 (05:37→23:38)
[2016-08-01] MEDS: MAGNESIUM OXIDE 400 MG TABLET PO PRN ×2 (05:37→17:03)
[2016-08-01] MEDS: LEVOTHYROXINE SODIUM 50 MCG TABLET PO SCH (05:37)
[2016-08-01 06:43] LABS: BASOPHILS % (AUTO) 0.5 % (0.0-2.0); EOSINOPHILS % (AUTO) 0.9 % (1.0-6.0); HEMATOCRIT 37.5 % (36-46); HEMOGLOBIN 12.1 g/dL (12.0-16.0); LYMPHOCYTES # (AUTO) 0.7 K/uL (1.0-4.8); LYMPHOCYTES % (AUTO) 15.6 % (22.0-44.0); MEAN CORPUSCULAR HEMOGLOBIN 32.6 pg (26.0-34.0); MEAN CORPUSCULAR HGB CONC 32.2 G/dL (31.0-37.0); MEAN CORPUSCULAR VOLUME 101 fL (80-100); MONOCYTES # (AUTO) 0.4 K/uL (0.1-1.0); MONOCYTES % (AUTO) 8.7 % (2.0-9.0); NEUTROPHILS # (AUTO) 3.1 K/uL (1.8-7.7); NEUTROPHILS % (AUTO) 74.3 % (40.0-70.0); PLATELET COUNT (AUTO) 133 K/uL (150-450); RED CELL DISTRIBUTION WIDTH 17.2 % (11.5-14.5); WHITE BLOOD COUNT (AUTO) 4.2 K/uL (4.5-11.0)
[2016-08-01 07:13] LABS: ANION GAP 4 mmol/L (8-16); CALCIUM, TOTAL 7.5 mg/dL (8.8-10.5); CARBON DIOXIDE 36 mmol/L (22-29); CHLORIDE 105 mmol/L (98-107); CREATINE KINASE, TOTAL 65 U/L (26-192); CREATININE 1.09 mg/dL (0.60-1.30); GLOMERULAR FILTR. RATE CALC 57 mL/min (>60); POTASSIUM 3.7 mmol/L (3.5-5.1); SODIUM SERUM 145 mmol/L (136-145); UREA NITROGEN, BLOOD 30 mg/dL (7-18)
[2016-08-01 07:22] LABS: B-TYPE NATRIURETIC PEPTIDE 585 pg/mL (0-100)
[2016-08-01 07:27] LABS: GLUCOSE,POINT OF CARE 111 MG/DL (70-110)
[2016-08-01 07:27] LABS: GLUCOSE COMMENT 1 Repeated; GLUCOSE,POINT OF CARE 73 MG/DL (70-110)
[2016-08-01 07:27] LABS: GLUCOSE,POINT OF CARE 280 MG/DL (70-110)
[2016-08-01 07:29] LABS: RBC MORPHOLOGY COMMENT ABNORMAL RBC MORPH
[2016-08-01] MEDS: PANTOPRAZOLE SODIUM 40 MG/VIAL IVP SCH (08:54)
[2016-08-01] MEDS: GABAPENTIN 300 MG CAPSULE PO SCH (08:55)
[2016-08-01] MEDS: METOPROLOL SUCCINATE 50 MG ER TABLET PO SCH (08:55)
[2016-08-01] MEDS: CLOPIDOGREL BISULFATE 75 MG TABLET PO SCH (08:55)
[2016-08-01] MEDS: ASPIRIN 81 MG EC TABLET PO SCH (08:55)
[2016-08-01] MEDS: BUMETANIDE 1 MG TABLET PO SCH ×2 (08:55→20:12)
[2016-08-01] MEDS: LOSARTAN POTASSIUM 50 MG TABLET PO SCH (08:55)
[2016-08-01] MEDS: AMIODARONE HCL 200 MG TABLET PO SCH (08:55)
[2016-08-01] MEDS: FOLIC ACID 1 MG TABLET PO SCH (08:56)
[2016-08-01] MEDS: BENZONATATE 100 MG CAPSULE PO SCH ×2 (08:56→20:12)
[2016-08-01] MEDS: ENOXAPARIN SODIUM 40 MG/0.4 ML PF SYRINGE SQ SCH (08:56)
[2016-08-01] MEDS: ACETAMINOPHEN 500 MG TABLET PO PRN (11:34)
[2016-08-01] MEDS: INSULIN ASPART 100 UNITS/ML SQ PRN ×2 (14:49→20:14)
[2016-08-01 16:42] LABS: TOTAL PROTEIN,BODY FLUID,REF 2.8 g/dL
[2016-08-01 17:12] LABS: GLUCOSE,POINT OF CARE 118 MG/DL (70-110)
[2016-08-01] MEDS: ATORVASTATIN CALCIUM 40 MG TABLET PO SCH (20:12)
[2016-08-02 04:26] VITALS: BP 113/67
[2016-08-02] MEDS: NITROGLYCERIN 2% (1 GM=INCH) PACKET TP SCH ×2 (05:07→12:19)
[2016-08-02] MEDS: LEVOTHYROXINE SODIUM 50 MCG TABLET PO SCH (06:41)
[2016-08-02 07:23] LABS: BASOPHILS % (AUTO) 0.3 % (0.0-2.0); EOSINOPHILS % (AUTO) 0.8 % (1.0-6.0); HEMATOCRIT 36.6 % (36-46); HEMOGLOBIN 11.8 g/dL (12.0-16.0); LYMPHOCYTES # (AUTO) 0.8 K/uL (1.0-4.8); LYMPHOCYTES % (AUTO) 18.8 % (22.0-44.0); MEAN CORPUSCULAR HEMOGLOBIN 32.9 pg (26.0-34.0); MEAN CORPUSCULAR HGB CONC 32.2 G/dL (31.0-37.0); MEAN CORPUSCULAR VOLUME 102 fL (80-100); MONOCYTES # (AUTO) 0.4 K/uL (0.1-1.0); MONOCYTES % (AUTO) 8.7 % (2.0-9.0); NEUTROPHILS # (AUTO) 2.9 K/uL (1.8-7.7); NEUTROPHILS % (AUTO) 71.4 % (40.0-70.0); PLATELET COUNT (AUTO) 135 K/uL (150-450); RED BLOOD CELL COUNT(AUTO) 3.59 MIL/uL (4.00-5.20); RED CELL DISTRIBUTION WIDTH 17.2 % (11.5-14.5); WHITE BLOOD COUNT (AUTO) 4.1 K/uL (4.5-11.0)
[2016-08-02 07:32] LABS: CALCIUM, TOTAL 7.6 mg/dL (8.8-10.5); CREATININE 1.28 mg/dL (0.60-1.30); POTASSIUM 4.6 mmol/L (3.5-5.1)
[2016-08-02 07:40] VITALS: BP 125/68
[2016-08-02] MEDS ORDERED: BUMETANIDE 0.25 MG/ML 10 ML VIAL IVP ONE (08:00)
[2016-08-02 08:22] LABS: RBC MORPHOLOGY COMMENT ABNORMAL RBC MORPH
[2016-08-02] MEDS: GABAPENTIN 300 MG CAPSULE PO SCH (08:37)
[2016-08-02] MEDS: AMIODARONE HCL 200 MG TABLET PO SCH (08:37)
[2016-08-02] MEDS: BENZONATATE 100 MG CAPSULE PO SCH (08:37)
[2016-08-02] MEDS: PANTOPRAZOLE SODIUM 40 MG/VIAL IVP SCH (08:37)
[2016-08-02] MEDS: ASPIRIN 81 MG EC TABLET PO SCH (08:38)
[2016-08-02] MEDS: FOLIC ACID 1 MG TABLET PO SCH (08:38)
[2016-08-02] MEDS: LOSARTAN POTASSIUM 50 MG TABLET PO SCH (08:38)
[2016-08-02] MEDS: ENOXAPARIN SODIUM 40 MG/0.4 ML PF SYRINGE SQ SCH (08:38)
[2016-08-02] MEDS: CLOPIDOGREL BISULFATE 75 MG TABLET PO SCH (08:38)
[2016-08-02] MEDS: METOPROLOL SUCCINATE 50 MG ER TABLET PO SCH (08:38)
[2016-08-02] MEDS ORDERED: PANT40TA25 PO (09:36)
[2016-08-02] MEDS ORDERED: LEVO50 PO (09:37)
[2016-08-02] MEDS ORDERED: ACET500C4 PO (09:43)
[2016-08-02] MEDS ORDERED: BISA10S PR (09:46)
[2016-08-02] MEDS ORDERED: INSNOV SQ (09:49)
[2016-08-02] MEDS ORDERED: MOM30 PO (09:55)
[2016-08-02] MEDS ORDERED: IPRA3AMP4 NEB (09:55)
[2016-08-02] MEDS ORDERED: ONDA4 PO (09:56)
[2016-08-02] MEDS: ACETAMINOPHEN 500 MG TABLET PO PRN (10:06)
[2016-08-02 11:17] VITALS: BP 119/70
[2016-08-02 13:57] LABS: GLUCOSE COMMENT 1 Received Meds; GLUCOSE,POINT OF CARE 156 MG/DL (70-110)
[2016-08-02 13:57] LABS: GLUCOSE,POINT OF CARE 117 MG/DL (70-110)
[2016-08-02 13:57] LABS: GLUCOSE,POINT OF CARE 82 MG/DL (70-110)
[2016-08-02] MEDS ORDERED: BUMETANIDE 1 MG TABLET PO SCH (16:00)
[2016-08-05 06:58] LABS: GLUCOSE,POINT OF CARE 72 MG/DL (70-110)
[2016-08-05 06:58] LABS: GLUCOSE COMMENT 1 Received Meds; GLUCOSE,POINT OF CARE 197 MG/DL (70-110)
[2016-08-05 06:58] LABS: GLUCOSE COMMENT 1 Received Meds; GLUCOSE,POINT OF CARE 200 MG/DL (70-110)
[2016-08-05 06:58] LABS: GLUCOSE,POINT OF CARE 56 MG/DL (70-110)
[2016-08-05 06:59] LABS: GLUCOSE COMMENT 1 Received Meds; GLUCOSE,POINT OF CARE 144 MG/DL (70-110)
[2016-11-01] MEDS ORDERED: AUD NEB (12:52)
[2016-11-01] MEDS ORDERED: ACET250T27 PO ×2 (12:52→12:53)
[2016-11-01] MEDS ORDERED: FLUT16H NASAL (13:12)
[2016-11-01] MEDS ORDERED: METO-325 PO (13:13)
[2016-11-01] MEDS ORDERED: LEVO250 PO (13:15)
== END 2016-08-02 13:40 | DRG 302 ==
LOC: EMS 07:35 → 5S 10:21
PROVIDERS: ADMIT Internal Medicine Geriatric Medicine; ATTEND Internal Medicine Geriatric Medicine
PROC: 0W993ZZ Drainage of Right Pleural Cavity, Percutaneous Approach (ICD-10-PCS; principal; 2016-07-31)
DX: I25.119 Atherosclerotic heart disease of native coronary artery with unspecified angina pectoris (principal); I50.23 Acute on chronic systolic (congestive) heart failure; D69.6 Thrombocytopenia, unspecified; I48.91 Unspecified atrial fibrillation; N28.9 Disorder of kidney and ureter, unspecified; E11.9 Type 2 diabetes mellitus without complications; I11.0 Hypertensive heart disease with heart failure; E78.5 Hyperlipidemia, unspecified; E03.9 Hypothyroidism, unspecified; I27.2 Other secondary pulmonary hypertension; D64.9 Anemia, unspecified; I34.0 Nonrheumatic mitral (valve) insufficiency; J44.9 Chronic obstructive pulmonary disease, unspecified; J45.909 Unspecified asthma, uncomplicated; Z66 Do not resuscitate; H18.419 Arcus senilis, unspecified eye; Z91.14 Patient's other noncompliance with medication regimen; Z95.5 Presence of coronary angioplasty implant and graft; I25.2 Old myocardial infarction; Z88.8 Allergy status to other drugs, medicaments and biological substances; Z88.1 Allergy status to other antibiotic agents; Z79.02 Long term (current) use of antithrombotics/antiplatelets; Z79.899 Other long term (current) drug therapy; Z98.890 Other specified postprocedural states; Z79.82 Long term (current) use of aspirin; Z95.1 Presence of aortocoronary bypass graft
CPT/HCPCS: 32555; 71250; 76942; 82306; 82465; 82607; 82746; 82945; 82962; 83036; 83615; 83735; 83986; 84100; 84132; 84155; 84157; 84439; 84443; 87015; 87040; 87070; 87081; 87101; 87205; 88108; 89051; 93005; 94640; 97116; 97163; 97166; 97530; 99285; C9113; J1650; J2270; J3490

== ENCOUNTER 2016-08-23 09:51 | Inpatient (IN) | payer MEDICARE ==
[~2016-08-23] VITALS: Ht 149.9 cm; Wt 57.3 kg
[~2016-08-23 09:51] MED LIST changes: +ACET500C4 PO; -AMIO200T44 PO; -AMLO-511 PO; +ATOR40TA28 PO; +BENZ-26 PO; +BISA10S PR; -FAMO20 PO; +FOLI1 PO; -FURO40 PO; +INSNOV SQ; +IPRA3AMP4 NEB; -LEVO25TA9 PO; +LEVO50 PO; -METO-323 PO; +METO100XL PO; +MOM30 PO; -NITR.4 BU; +ONDA4 PO; -POT25TAB5 PO; -ROSU20 PO
[2016-08-23 10:07] LABS: GLUCOSE,POINT OF CARE 253 MG/DL (70-110)
[2016-08-23] MEDS ORDERED: IPRATROPIUM BROMIDE 0.5 MG/2.5 ML NEB SOLUTION NEB ONE (10:30)
[2016-08-23] MEDS ORDERED: ALBUTEROL SULFATE 2.5 MG/0.5 ML NEB SOLUTION NEB ONE (10:30)
[2016-08-23] MEDS ORDERED: NITROGLYCERIN 2% (1 GM=INCH) PACKET TP ONE (10:30)
[2016-08-23 11:07] LABS: BASOPHILS % (AUTO) 0.4 % (0.0-2.0); EOSINOPHILS % (AUTO) 0.2 % (1.0-6.0); HEMOGLOBIN 11.6 g/dL (12.0-16.0); LYMPHOCYTES # (AUTO) 0.6 K/uL (1.0-4.8); LYMPHOCYTES % (AUTO) 14.4 % (22.0-44.0); MEAN CORPUSCULAR HEMOGLOBIN 32.6 pg (26.0-34.0); MEAN CORPUSCULAR HGB CONC 32.2 G/dL (31.0-37.0); MEAN CORPUSCULAR VOLUME 101 fL (80-100); MONOCYTES # (AUTO) 0.4 K/uL (0.1-1.0); MONOCYTES % (AUTO) 8.7 % (2.0-9.0); NEUTROPHILS # (AUTO) 3.3 K/uL (1.8-7.7); NEUTROPHILS % (AUTO) 76.3 % (40.0-70.0); PLATELET COUNT (AUTO) 91 K/uL (150-450); RED BLOOD CELL COUNT(AUTO) 3.55 MIL/uL (4.00-5.20); RED CELL DISTRIBUTION WIDTH 16.6 % (11.5-14.5); WHITE BLOOD COUNT (AUTO) 4.3 K/uL (4.5-11.0)
[2016-08-23 11:11] LABS: GLUCOSE,POINT OF CARE 223 MG/DL (70-110)
[2016-08-23 11:23] LABS: CALCIUM, TOTAL 8.8 mg/dL (8.8-10.5); CREATININE 1.43 mg/dL (0.60-1.30); POTASSIUM 4.5 mmol/L (3.5-5.1)
[2016-08-23 11:29] LABS: ALBUMIN 3.1 g/dL (3.4-5.0); BILIRUBIN,TOTAL 0.6 mg/dL (0.1-1.0); RBC MORPHOLOGY COMMENT ABNORMAL RBC MORPH; TOTAL PROTEIN, SERUM 6.8 g/dL (6.4-8.2)
[2016-08-23] MEDS ORDERED: FUROSEMIDE 40 MG/4 ML VIAL IVP ONE (11:45)
[2016-08-23 11:48] LABS: APPEARANCE,URINE CLEAR (CLEAR); GLUCOSE, URINE (UA) NEGATIVE (NEGATIVE); KETONES,URINE NEGATIVE (NEGATIVE); LEUKOCYTE ESTERASE ,URINE NEGATIVE (NEGATIVE); OCCULT BLOOD,URINE TRACE (NEGATIVE); PH,URINE 5.5 (5.0-8.0); PROTEIN,URINE NEGATIVE (NEGATIVE)
[2016-08-23 11:49] LABS: ADD UA MICROSCOPIC YES
[2016-08-23 11:56] LABS: AMORPHOUS SEDIMENT,UR Few /LPF (None Seen); SQUAMOUS EPITHELIAL CELL,UR Few /LPF (None Seen); WBC,URINE 0-2 /HPF (0-5)
[2016-08-23] MEDS ORDERED: ASPIRIN 81 MG CHEWABLE TABLET PO ONE (12:00)
[2016-08-23 15:12] LABS: GLUCOSE,POINT OF CARE 150 MG/DL (70-110)
[2016-08-23 15:53] VITALS: BP 132/94
[2016-08-23] MEDS ORDERED: HYDROCODONE/ACETAMINOPHEN 5-325 MG TABLET PO PRN (16:45)
[2016-08-23] MEDS ORDERED: BISACODYL 10 MG RECTAL RECTAL SUPPOSITORY PR PRN (16:45)
[2016-08-23] MEDS ORDERED: MAGNESIUM HYDROXIDE SUSPENSION 30 ML UDCUP PO PRN ×2 (16:45)
[2016-08-23] MEDS ORDERED: LEVALBUTEROL HCL 0.63 MG/3 ML NEB SOLUTION NEB PRN (16:45)
[2016-08-23] MEDS ORDERED: BENZONATATE 100 MG CAPSULE PO PRN (16:45)
[2016-08-23] MEDS ORDERED: ZOLPIDEM TARTRATE 5 MG TABLET PO PRN (16:45)
[2016-08-23] MEDS ORDERED: MORPHINE SULFATE 2 MG/ML SYRINGE IVP PRN (16:45)
[2016-08-23] MEDS ORDERED: ONDANSETRON HCL 4 MG/2 ML VIAL IVP PRN (16:45)
[2016-08-23] MEDS ORDERED: HEPARIN SODIUM,PORCINE 5,000 UNITS/ML VIAL IVP PRN ×2 (17:15)
[2016-08-23 17:54] LABS: INR 1.1 (0.9-1.1); PROTHROMBIN TIME 11.4 SEC (9.4-11.6)
[2016-08-23 18:08] LABS: BASOPHILS # (AUTO) 0.01 K/uL (0.00-0.20); BASOPHILS % (AUTO) 0.4 % (0.0-2.0); EOSINOPHILS # (AUTO) 0.01 K/uL (0.00-0.70); EOSINOPHILS % (AUTO) 0.51 % (1.0-6.0); HEMATOCRIT 35.6 % (36-46); HEMOGLOBIN 11.8 g/dL (12.0-16.0); LYMPHOCYTES # (AUTO) 0.3 K/uL (1.0-4.8); LYMPHOCYTES % (AUTO) 19.8 % (22.0-44.0); MEAN CORPUSCULAR HEMOGLOBIN 32.8 pg (26.0-34.0); MEAN CORPUSCULAR HGB CONC 33.1 G/dL (31.0-37.0); MEAN CORPUSCULAR VOLUME 99 fL (80-100); MONOCYTES # (AUTO) 0.1 K/uL (0.1-1.0); MONOCYTES % (AUTO) 8.8 % (2.0-9.0); NEUTROPHILS # (AUTO) 1.1 K/uL (1.8-7.7); NEUTROPHILS % (AUTO) 70.4 % (40.0-70.0); RED BLOOD CELL COUNT(AUTO) 3.58 MIL/uL (4.00-5.20); RED CELL DISTRIBUTION WIDTH 16.6 % (11.5-14.5)
[2016-08-23 18:10] LABS: WHITE BLOOD COUNT (AUTO) 7.4 K/uL (4.5-11.0)
[2016-08-23 18:30] LABS: CREATINE KINASE MB 0.7 ng/mL (0-5); CREATINE KINASE, TOTAL 76 U/L (26-192)
[2016-08-23 18:32] LABS: PLATELET COUNT (AUTO) 93 K/uL (150-450)
[2016-08-23 19:31] VITALS: BP 156/92
[2016-08-23] MEDS: HEPARIN SODIUM 25000 UNITS/D5W 250 ML IV PRN (19:53)
[2016-08-23] MEDS: METOPROLOL SUCCINATE 100 MG ER TABLET PO SCH (20:15)
[2016-08-23] MEDS: DOCUSATE SODIUM 100 MG CAPSULE PO SCH (20:15)
[2016-08-23] MEDS: BUMETANIDE 0.25 MG/ML 4 ML VIAL IVP SCH (20:16)
[2016-08-23] MEDS: LEVALBUTEROL HCL 0.63 MG/3 ML NEB SOLUTION NEB SCH (20:17)
[2016-08-23 23:59] VITALS: BP 137/86
[2016-08-24] MEDS ORDERED: HEPARIN SODIUM,PORCINE 5,000 UNITS/ML VIAL SQ SCH
[2016-08-24] MEDS: LEVALBUTEROL HCL 0.63 MG/3 ML NEB SOLUTION NEB SCH ×6 (01:57→19:57)
[2016-08-24] MEDS: HEPARIN SODIUM 25000 UNITS/D5W 250 ML IV PRN (03:36)
[2016-08-24] MEDS ORDERED: 0.9% SODIUM CHLORIDE 10 ML SYRINGE IVP PRN (04:15)
[2016-08-24 05:30] VITALS: BP 128/72
[2016-08-24] MEDS: LEVOTHYROXINE SODIUM 50 MCG TABLET PO SCH (07:02)
[2016-08-24 07:29] VITALS: BP 147/94
[2016-08-24] MEDS: ASPIRIN 81 MG EC TABLET PO SCH (08:36)
[2016-08-24] MEDS: AMIODARONE HCL 200 MG TABLET PO SCH (08:36)
[2016-08-24] MEDS: LOSARTAN POTASSIUM 50 MG TABLET PO SCH (08:36)
[2016-08-24] MEDS: PANTOPRAZOLE SODIUM 40 MG DR TABLET PO SCH (08:36)
[2016-08-24] MEDS: CLOPIDOGREL BISULFATE 75 MG TABLET PO SCH (08:36)
[2016-08-24] MEDS: GABAPENTIN 300 MG CAPSULE PO SCH (08:36)
[2016-08-24] MEDS: BUMETANIDE 0.25 MG/ML 4 ML VIAL IVP SCH ×2 (08:37→20:20)
[2016-08-24] MEDS: FOLIC ACID 1 MG TABLET PO SCH (08:37)
[2016-08-24] MEDS: METOPROLOL SUCCINATE 100 MG ER TABLET PO SCH ×2 (08:37→21:00)
[2016-08-24] MEDS: DOCUSATE SODIUM 100 MG CAPSULE PO SCH ×2 (08:37→20:20)
[2016-08-24 09:17] LABS: BASOPHILS % (AUTO) 0.7 % (0.0-2.0); EOSINOPHILS % (AUTO) 0.7 % (1.0-6.0); HEMOGLOBIN 11.3 g/dL (12.0-16.0); LYMPHOCYTES # (AUTO) 0.7 K/uL (1.0-4.8); LYMPHOCYTES % (AUTO) 18.3 % (22.0-44.0); MEAN CORPUSCULAR HGB CONC 32.4 G/dL (31.0-37.0); MEAN CORPUSCULAR VOLUME 102 fL (80-100); MONOCYTES # (AUTO) 0.3 K/uL (0.1-1.0); MONOCYTES % (AUTO) 7.9 % (2.0-9.0); NEUTROPHILS # (AUTO) 2.8 K/uL (1.8-7.7); NEUTROPHILS % (AUTO) 72.4 % (40.0-70.0); PLATELET COUNT (AUTO) 85 K/uL (150-450); RED BLOOD CELL COUNT(AUTO) 3.44 MIL/uL (4.00-5.20); RED CELL DISTRIBUTION WIDTH 16.9 % (11.5-14.5); WHITE BLOOD COUNT (AUTO) 3.8 K/uL (4.5-11.0)
[2016-08-24 09:45] LABS: ANION GAP 4 mmol/L (8-16); CALCIUM, TOTAL 8.5 mg/dL (8.8-10.5); CARBON DIOXIDE 35 mmol/L (22-29); CHLORIDE 105 mmol/L (98-107); CHOL/HDL RATIO 2.1 (3.9-5.7); CREATINE KINASE, TOTAL 71 U/L (26-192); CREATININE 1.32 mg/dL (0.60-1.30); GLOMERULAR FILTR. RATE CALC 46 mL/min (>60); POTASSIUM 3.8 mmol/L (3.5-5.1); SODIUM SERUM 144 mmol/L (136-145); THYROID STIMULATING HORMONE 4.12 uIU/mL (0.36-3.74); UREA NITROGEN, BLOOD 31 mg/dL (7-18)
[2016-08-24 09:50] LABS: B-TYPE NATRIURETIC PEPTIDE 705 pg/mL (0-100)
[2016-08-24 10:58] LABS: INR 1.1 (0.9-1.1)
[2016-08-24 11:37] VITALS: BP 140/94
[2016-08-24] MEDS ORDERED: DEXTROSE 50%-WATER 25 GM/50 ML SYRINGE IVP PRN (12:15)
[2016-08-24] MEDS: INSULIN ASPART 100 UNITS/ML SQ PRN ×2 (12:49→21:11)
[2016-08-24 15:10] VITALS: BP 123/80
[2016-08-24 18:12] LABS: CREATINE KINASE, TOTAL 73 U/L (26-192)
[2016-08-24 20:08] VITALS: BP 111/65
[2016-08-24] MEDS: ACETAMINOPHEN 325 MG TABLET PO PRN (21:33)
[2016-08-24 23:42] VITALS: BP 129/80
[2016-08-25] VITALS (7 sets, daily range): BP systolic 101–122; BP diastolic 53–87
[2016-08-25] MEDS: HEPARIN SODIUM 25000 UNITS/D5W 250 ML IV PRN (00:57)
[2016-08-25] MEDS: LEVALBUTEROL HCL 0.63 MG/3 ML NEB SOLUTION NEB SCH ×5 (02:00→20:15)
[2016-08-25] MEDS: LEVOTHYROXINE SODIUM 50 MCG TABLET PO SCH (05:51)
[2016-08-25] MEDS: INSULIN ASPART 100 UNITS/ML SQ PRN ×3 (05:51→18:17)
[2016-08-25 06:04] LABS: ANION GAP 3 mmol/L (8-16); CALCIUM, TOTAL 8.6 mg/dL (8.8-10.5); CARBON DIOXIDE 35 mmol/L (22-29); CHLORIDE 104 mmol/L (98-107); CREATINE KINASE MB 1.3 ng/mL (0-5); CREATINE KINASE, TOTAL 77 U/L (26-192); CREATININE 1.47 mg/dL (0.60-1.30); GLOMERULAR FILTR. RATE CALC 40 mL/min (>60); SODIUM SERUM 142 mmol/L (136-145); UREA NITROGEN, BLOOD 36 mg/dL (7-18)
[2016-08-25 06:21] LABS: BASOPHILS % (AUTO) 0.6 % (0.0-2.0); EOSINOPHILS % (AUTO) 1.1 % (1.0-6.0); HEMATOCRIT 34.2 % (36-46); HEMOGLOBIN 10.8 g/dL (12.0-16.0); LYMPHOCYTES # (AUTO) 0.7 K/uL (1.0-4.8); MEAN CORPUSCULAR HEMOGLOBIN 32.6 pg (26.0-34.0); MEAN CORPUSCULAR HGB CONC 31.7 G/dL (31.0-37.0); MEAN CORPUSCULAR VOLUME 103 fL (80-100); MONOCYTES # (AUTO) 0.3 K/uL (0.1-1.0); MONOCYTES % (AUTO) 8.7 % (2.0-9.0); NEUTROPHILS # (AUTO) 2.5 K/uL (1.8-7.7); NEUTROPHILS % (AUTO) 70.6 % (40.0-70.0); RED BLOOD CELL COUNT(AUTO) 3.33 MIL/uL (4.00-5.20); RED CELL DISTRIBUTION WIDTH 16.4 % (11.5-14.5); WHITE BLOOD COUNT (AUTO) 3.5 K/uL (4.5-11.0)
[2016-08-25 07:16] LABS: B-TYPE NATRIURETIC PEPTIDE 842 pg/mL (0-100)
[2016-08-25] MEDS: METOPROLOL SUCCINATE 100 MG ER TABLET PO SCH ×2 (08:27→21:00)
[2016-08-25] MEDS: LOSARTAN POTASSIUM 50 MG TABLET PO SCH (08:27)
[2016-08-25] MEDS: AMIODARONE HCL 200 MG TABLET PO SCH (08:27)
[2016-08-25] MEDS: FOLIC ACID 1 MG TABLET PO SCH (08:27)
[2016-08-25] MEDS: PANTOPRAZOLE SODIUM 40 MG DR TABLET PO SCH (08:27)
[2016-08-25] MEDS: BUMETANIDE 0.25 MG/ML 4 ML VIAL IVP SCH ×2 (08:27→20:38)
[2016-08-25] MEDS: CLOPIDOGREL BISULFATE 75 MG TABLET PO SCH (08:27)
[2016-08-25] MEDS: DOCUSATE SODIUM 100 MG CAPSULE PO SCH ×2 (08:28→20:38)
[2016-08-25] MEDS: GABAPENTIN 300 MG CAPSULE PO SCH (08:28)
[2016-08-25] MEDS: ASPIRIN 81 MG EC TABLET PO SCH (08:28)
[2016-08-25 10:21] LABS: PLATELET COUNT (AUTO) 76 K/uL (150-450); RBC MORPHOLOGY COMMENT ABNORMAL RBC MORPH
[2016-08-25] MEDS: ACETAMINOPHEN 325 MG TABLET PO PRN (14:03)
[2016-08-26] VITALS (16 sets, daily range): BP systolic 105–145; BP diastolic 63–97
[2016-08-26] MEDS: LEVALBUTEROL HCL 0.63 MG/3 ML NEB SOLUTION NEB SCH ×4 (01:48→19:57)
[2016-08-26] MEDS ORDERED: 0.9% SODIUM CHLORIDE 5 ML NEB SOLUTION NEB ONE (01:51)
[2016-08-26] MEDS: LEVOTHYROXINE SODIUM 50 MCG TABLET PO SCH (05:49)
[2016-08-26 06:49] LABS: BASOPHILS % (AUTO) 0.4 % (0.0-2.0); HEMATOCRIT 35.8 % (36-46); HEMOGLOBIN 11.6 g/dL (12.0-16.0); LYMPHOCYTES # (AUTO) 0.8 K/uL (1.0-4.8); LYMPHOCYTES % (AUTO) 19.8 % (22.0-44.0); MEAN CORPUSCULAR HGB CONC 32.4 G/dL (31.0-37.0); MEAN CORPUSCULAR VOLUME 102 fL (80-100); MONOCYTES # (AUTO) 0.3 K/uL (0.1-1.0); MONOCYTES % (AUTO) 8.5 % (2.0-9.0); NEUTROPHILS # (AUTO) 2.7 K/uL (1.8-7.7); NEUTROPHILS % (AUTO) 70.3 % (40.0-70.0); PLATELET COUNT (AUTO) 80 K/uL (150-450); RED BLOOD CELL COUNT(AUTO) 3.51 MIL/uL (4.00-5.20); RED CELL DISTRIBUTION WIDTH 16.5 % (11.5-14.5); WHITE BLOOD COUNT (AUTO) 3.9 K/uL (4.5-11.0)
[2016-08-26] MEDS ORDERED: HEPARIN SODIUM 1000 UNITS/NS 1,000 ML ONE (08:54)
[2016-08-26] MEDS ORDERED: IOHEXOL 300 MG/ML 150 ML VIAL ONE ×2 (08:54→10:44)
[2016-08-26] MEDS ORDERED: SODIUM BICARBONATE 50 MEQ/50 ML VIAL ONE ×2 (08:54→10:44)
[2016-08-26] MEDS ORDERED: LIDOCAINE HCL/PF 1% 30 ML VIAL ONE ×2 (08:54→10:43)
[2016-08-26] MEDS ORDERED: FentaNYL CITRATE-PF 100 MCG/2 ML VIAL ONE (09:37)
[2016-08-26] MEDS ORDERED: MIDAZOLAM HCL 2 MG/2 ML VIAL ONE (09:37)
[2016-08-26] MEDS ORDERED: SODIUM CHLORIDE 0.9% 500 ML IV ONE (09:47)
[2016-08-26] MEDS ORDERED: HEPARIN SODIUM 1000 UNITS/NS 1,000 ML IARTER ONE (09:47)
[2016-08-26] MEDS ORDERED: IOHEXOL 300 MG/ML 100 ML VIAL ONE (09:47)
[2016-08-26] MEDS ORDERED: IOHEXOL 300 MG/ML 150 ML VIAL IARTER ONE (10:00)
[2016-08-26] MEDS ORDERED: IOHEXOL 300 MG/ML 100 ML VIAL IARTER ONE (10:00)
[2016-08-26] MEDS ORDERED: LIDOCAINE 1% 30 ML/SOD BICARB 8.4% 4 ML SQ ONE (10:00)
[2016-08-26 10:16] LABS: RBC MORPHOLOGY COMMENT ABNORMAL RBC MORPH
[2016-08-26] MEDS: BUMETANIDE 0.25 MG/ML 4 ML VIAL IVP SCH ×3 (11:25→21:00)
[2016-08-26] MEDS: PANTOPRAZOLE SODIUM 40 MG DR TABLET PO SCH (11:26)
[2016-08-26] MEDS: GABAPENTIN 300 MG CAPSULE PO SCH (11:26)
[2016-08-26] MEDS: CLOPIDOGREL BISULFATE 75 MG TABLET PO SCH (11:26)
[2016-08-26] MEDS: DOCUSATE SODIUM 100 MG CAPSULE PO SCH ×2 (11:26→21:00)
[2016-08-26] MEDS: LOSARTAN POTASSIUM 50 MG TABLET PO SCH (11:26)
[2016-08-26] MEDS: METOPROLOL SUCCINATE 100 MG ER TABLET PO SCH ×2 (11:26→21:00)
[2016-08-26] MEDS: ASPIRIN 81 MG EC TABLET PO SCH (11:26)
[2016-08-26] MEDS: AMIODARONE HCL 200 MG TABLET PO SCH (11:27)
[2016-08-26] MEDS: FOLIC ACID 1 MG TABLET PO SCH (11:27)
[2016-08-26] MEDS: INSULIN ASPART 100 UNITS/ML SQ PRN ×3 (12:26→21:06)
[2016-08-27] MEDS: LEVALBUTEROL HCL 0.63 MG/3 ML NEB SOLUTION NEB SCH ×3 (02:05→14:42)
[2016-08-27 04:45] VITALS: BP 118/64
[2016-08-27] MEDS: LEVOTHYROXINE SODIUM 50 MCG TABLET PO SCH (05:55)
[2016-08-27 06:48] LABS: GLUCOSE,POINT OF CARE 102 MG/DL (70-110)
[2016-08-27 06:48] LABS: GLUCOSE COMMENT 1 Received Meds; GLUCOSE,POINT OF CARE 179 MG/DL (70-110)
[2016-08-27 06:52] LABS: GLUCOSE COMMENT 1 Received Meds; GLUCOSE,POINT OF CARE 150 MG/DL (70-110)
[2016-08-27 06:52] LABS: GLUCOSE,POINT OF CARE 133 MG/DL (70-110)
[2016-08-27 06:52] LABS: GLUCOSE COMMENT 1 Received Meds; GLUCOSE,POINT OF CARE 175 MG/DL (70-110)
[2016-08-27 07:12] LABS: GLUCOSE COMMENT 1 Received Meds; GLUCOSE,POINT OF CARE 144 MG/DL (70-110)
[2016-08-27 07:29] VITALS: BP 124/64
[2016-08-27] MEDS ORDERED: 0.9% SODIUM CHLORIDE 5 ML NEB SOLUTION NEB ONE (07:43)
[2016-08-27] MEDS: DOCUSATE SODIUM 100 MG CAPSULE PO SCH (09:00)
[2016-08-27] MEDS: ASPIRIN 81 MG EC TABLET PO SCH (09:29)
[2016-08-27] MEDS: FOLIC ACID 1 MG TABLET PO SCH (09:29)
[2016-08-27] MEDS: AMIODARONE HCL 200 MG TABLET PO SCH (09:29)
[2016-08-27] MEDS: METOPROLOL SUCCINATE 100 MG ER TABLET PO SCH (09:29)
[2016-08-27] MEDS: GABAPENTIN 300 MG CAPSULE PO SCH (09:29)
[2016-08-27] MEDS: CLOPIDOGREL BISULFATE 75 MG TABLET PO SCH (09:29)
[2016-08-27] MEDS: PANTOPRAZOLE SODIUM 40 MG DR TABLET PO SCH (09:29)
[2016-08-27] MEDS: BUMETANIDE 0.25 MG/ML 4 ML VIAL IVP SCH (09:30)
[2016-08-27] MEDS: LOSARTAN POTASSIUM 50 MG TABLET PO SCH (11:03)
[2016-08-27 11:27] VITALS: BP 116/73
[2016-08-27] MEDS: INSULIN ASPART 100 UNITS/ML SQ PRN (11:37)
[2016-08-27 15:57] VITALS: BP 109/81
== END 2016-08-27 17:05 | disposition home or self-care (01) | DRG 280 ==
LOC: EMS 09:52 → 5S 14:51
PROVIDERS: ADMIT Internal Medicine; ATTEND Internal Medicine
PROC: 4A023N8 Measurement of Cardiac Sampling and Pressure, Bilateral, Percutaneous Approach (ICD-10-PCS; principal; 2016-08-25)
PROC: B2111ZZ Fluoroscopy of Multiple Coronary Arteries using Low Osmolar Contrast (ICD-10-PCS; 2016-08-25)
PROC: B2151ZZ Fluoroscopy of Left Heart using Low Osmolar Contrast (ICD-10-PCS; 2016-08-25)
PROC: B41FYZZ Fluoroscopy of Right Lower Extremity Arteries using Other Contrast (ICD-10-PCS; 2016-08-25)
PROC: B41F1ZZ Fluoroscopy of Right Lower Extremity Arteries using Low Osmolar Contrast (ICD-10-PCS; 2016-08-25)
PROC: B2131ZZ Fluoroscopy of Multiple Coronary Artery Bypass Grafts using Low Osmolar Contrast (ICD-10-PCS; 2016-08-25)
DX: I21.4 Non-ST elevation (NSTEMI) myocardial infarction (principal); I50.23 Acute on chronic systolic (congestive) heart failure; I13.0 Hypertensive heart and chronic kidney disease with heart failure and stage 1 through stage 4 chronic kidney disease, or unspecified chronic kidney disease; I48.92 Unspecified atrial flutter; E11.22 Type 2 diabetes mellitus with diabetic chronic kidney disease; D69.6 Thrombocytopenia, unspecified; D64.9 Anemia, unspecified; I48.91 Unspecified atrial fibrillation; I48.2 Chronic atrial fibrillation; J45.909 Unspecified asthma, uncomplicated; J44.9 Chronic obstructive pulmonary disease, unspecified; I44.0 Atrioventricular block, first degree; I70.0 Atherosclerosis of aorta; I25.10 Atherosclerotic heart disease of native coronary artery without angina pectoris; E03.9 Hypothyroidism, unspecified; N18.2 Chronic kidney disease, stage 2 (mild); I08.1 Rheumatic disorders of both mitral and tricuspid valves; I27.2 Other secondary pulmonary hypertension; Z95.1 Presence of aortocoronary bypass graft; Z95.5 Presence of coronary angioplasty implant and graft; Z99.81 Dependence on supplemental oxygen; Z88.8 Allergy status to other drugs, medicaments and biological substances; Z88.1 Allergy status to other antibiotic agents; Z79.899 Other long term (current) drug therapy; Z79.02 Long term (current) use of antithrombotics/antiplatelets; Z79.82 Long term (current) use of aspirin; Z79.4 Long term (current) use of insulin; Z98.890 Other specified postprocedural states
CPT/HCPCS: 51702; 82962; 83735; 84443; 87081; 93005; 93306; 93460; 93567; 93970; 94640; 96374; 99285; J1644; J1940; J2250; J3010; J3490; Q9967

== ENCOUNTER 2016-09-05 21:21 | Inpatient (IN) | payer MEDICARE ==
[~2016-09-05] VITALS: Ht 149.9 cm; Wt 62.9 kg
[~2016-09-05 21:21] MED LIST changes: -ACET500C4 PO; -ATOR40TA28 PO; -BISA10S PR; -ONDA4 PO; -SITA100 PO; -ZARO2.5 PO
[2016-09-05 21:42] LABS: GLUCOSE,POINT OF CARE 185 MG/DL (70-110)
[2016-09-05 21:50] LABS: BASOPHILS % (AUTO) 0.7 % (0.0-2.0); EOSINOPHILS % (AUTO) 0.7 % (1.0-6.0); HEMATOCRIT 36.1 % (36-46); HEMOGLOBIN 11.5 g/dL (12.0-16.0); LYMPHOCYTES # (AUTO) 0.8 K/uL (1.0-4.8); MEAN CORPUSCULAR HEMOGLOBIN 32.8 pg (26.0-34.0); MEAN CORPUSCULAR HGB CONC 31.9 G/dL (31.0-37.0); MEAN CORPUSCULAR VOLUME 103 fL (80-100); MONOCYTES # (AUTO) 0.5 K/uL (0.1-1.0); MONOCYTES % (AUTO) 11.1 % (2.0-9.0); NEUTROPHILS # (AUTO) 3.5 K/uL (1.8-7.7); NEUTROPHILS % (AUTO) 71.5 % (40.0-70.0); PLATELET COUNT (AUTO) 102 K/uL (150-450); RED BLOOD CELL COUNT(AUTO) 3.51 MIL/uL (4.00-5.20); RED CELL DISTRIBUTION WIDTH 17.4 % (11.5-14.5); WHITE BLOOD COUNT (AUTO) 4.9 K/uL (4.5-11.0)
[2016-09-05 21:52] LABS: RBC MORPHOLOGY COMMENT ABNORMAL RBC MORPH
[2016-09-05 22:02] LABS: CREATININE 2.24 mg/dL (0.60-1.30); POTASSIUM 5.4 mmol/L (3.5-5.1)
[2016-09-05 22:08] LABS: ALBUMIN 3.5 g/dL (3.4-5.0); BILIRUBIN,TOTAL 0.6 mg/dL (0.1-1.0); TOTAL PROTEIN, SERUM 7.1 g/dL (6.4-8.2)
[2016-09-05] MEDS ORDERED: FUROSEMIDE 40 MG/4 ML VIAL IVP ONE (23:30)
[2016-09-05] MEDS ORDERED: NITROGLYCERIN 2% (1 GM=INCH) PACKET TP ONE (23:30)
[2016-09-06] MEDS ORDERED: MORPHINE SULFATE 4 MG/ML SYRINGE IVP PRN (00:15)
[2016-09-06] MEDS ORDERED: ACETAMINOPHEN 325 MG TABLET PO PRN (00:15)
[2016-09-06] MEDS ORDERED: ZOLPIDEM TARTRATE 5 MG TABLET PO PRN (00:15)
[2016-09-06] MEDS ORDERED: BISACODYL 10 MG RECTAL RECTAL SUPPOSITORY PR PRN (00:15)
[2016-09-06] MEDS ORDERED: HYDROCODONE/ACETAMINOPHEN 5-325 MG TABLET PO PRN (00:15)
[2016-09-06] MEDS ORDERED: MAGNESIUM HYDROXIDE SUSPENSION 30 ML UDCUP PO PRN (00:15)
[2016-09-06] MEDS ORDERED: ONDANSETRON HCL 4 MG/2 ML VIAL IVP PRN (00:15)
[2016-09-06] MEDS ORDERED: MORPHINE SULFATE 2 MG/ML SYRINGE IVP PRN (00:16)
[2016-09-06 01:17] VITALS: BP 131/97
[2016-09-06 05:09] VITALS: BP 130/93
[2016-09-06] MEDS: LEVOTHYROXINE SODIUM 50 MCG TABLET PO SCH (05:43)
[2016-09-06 07:25] VITALS: BP 130/98
[2016-09-06] MEDS: LOSARTAN POTASSIUM 50 MG TABLET PO SCH (08:52)
[2016-09-06] MEDS: BUMETANIDE 1 MG TABLET PO SCH ×2 (08:52→21:06)
[2016-09-06] MEDS: FOLIC ACID 1 MG TABLET PO SCH (08:52)
[2016-09-06] MEDS: ASPIRIN 81 MG EC TABLET PO SCH (08:52)
[2016-09-06] MEDS: CLOPIDOGREL BISULFATE 75 MG TABLET PO SCH (08:52)
[2016-09-06] MEDS: PANTOPRAZOLE SODIUM 40 MG DR TABLET PO SCH (08:52)
[2016-09-06] MEDS: METOPROLOL SUCCINATE 100 MG ER TABLET PO SCH (08:52)
[2016-09-06] MEDS: AMIODARONE HCL 200 MG TABLET PO SCH (08:52)
[2016-09-06] MEDS: HEPARIN SODIUM,PORCINE 5,000 UNITS/ML VIAL SQ SCH ×2 (08:53→16:16)
[2016-09-06] MEDS: GABAPENTIN 300 MG CAPSULE PO SCH (08:53)
[2016-09-06] MEDS: DOCUSATE SODIUM 100 MG CAPSULE PO SCH ×2 (08:56→21:06)
[2016-09-06] MEDS ORDERED: PANTOPRAZOLE SODIUM 40 MG/VIAL IVP SCH (09:00)
[2016-09-06] MEDS: IPRATROPIUM BROMIDE 0.5 MG/2.5 ML NEB SOLUTION NEB PRN (09:20)
[2016-09-06] MEDS: ALBUTEROL SULFATE 2.5 MG/0.5 ML NEB SOLUTION NEB PRN (09:20)
[2016-09-06 11:53] VITALS: BP 107/78
[2016-09-06 15:26] VITALS: BP 122/78
[2016-09-06 19:44] VITALS: BP 105/65
[2016-09-07 00:01] VITALS: BP 119/67
[2016-09-07] MEDS: HEPARIN SODIUM,PORCINE 5,000 UNITS/ML VIAL SQ SCH ×3 (00:20→16:48)
[2016-09-07] MEDS: METOPROLOL SUCCINATE 100 MG ER TABLET PO SCH ×3 (00:21→21:00)
[2016-09-07 04:29] VITALS: BP 114/79
[2016-09-07] MEDS: LEVOTHYROXINE SODIUM 50 MCG TABLET PO SCH (06:21)
[2016-09-07 06:42] LABS: BASOPHILS # (AUTO) 0.02 K/uL (0.00-0.20); BASOPHILS % (AUTO) 0.5 % (0.0-2.0); EOSINOPHILS # (AUTO) 0.05 K/uL (0.00-0.70); EOSINOPHILS % (AUTO) 1.35 % (1.0-6.0); HEMATOCRIT 35.4 % (36-46); HEMOGLOBIN 11.3 g/dL (12.0-16.0); LYMPHOCYTES # (AUTO) 0.6 K/uL (1.0-4.8); LYMPHOCYTES % (AUTO) 15.8 % (22.0-44.0); MEAN CORPUSCULAR HEMOGLOBIN 33.3 pg (26.0-34.0); MEAN CORPUSCULAR HGB CONC 31.9 G/dL (31.0-37.0); MEAN CORPUSCULAR VOLUME 104 fL (80-100); MONOCYTES # (AUTO) 0.4 K/uL (0.1-1.0); MONOCYTES % (AUTO) 11.1 % (2.0-9.0); NEUTROPHILS # (AUTO) 2.7 K/uL (1.8-7.7); NEUTROPHILS % (AUTO) 71.4 % (40.0-70.0); PLATELET COUNT (AUTO) 93 K/uL (150-450); RED BLOOD CELL COUNT(AUTO) 3.39 MIL/uL (4.00-5.20); RED CELL DISTRIBUTION WIDTH 17.5 % (11.5-14.5); WHITE BLOOD COUNT (AUTO) 3.8 K/uL (4.5-11.0)
[2016-09-07 06:48] LABS: CALCIUM, TOTAL 8.7 mg/dL (8.8-10.5); CREATININE 2.02 mg/dL (0.60-1.30); POTASSIUM 4.3 mmol/L (3.5-5.1)
[2016-09-07 06:56] LABS: INR 1.1 (0.9-1.1)
[2016-09-07 07:28] VITALS: BP 111/76
[2016-09-07] MEDS: GABAPENTIN 300 MG CAPSULE PO SCH (08:54)
[2016-09-07] MEDS: DOCUSATE SODIUM 100 MG CAPSULE PO SCH ×2 (08:54→20:38)
[2016-09-07] MEDS: LOSARTAN POTASSIUM 50 MG TABLET PO SCH (08:54)
[2016-09-07] MEDS: BUMETANIDE 1 MG TABLET PO SCH (08:54)
[2016-09-07] MEDS: FOLIC ACID 1 MG TABLET PO SCH (08:55)
[2016-09-07] MEDS: CLOPIDOGREL BISULFATE 75 MG TABLET PO SCH (08:55)
[2016-09-07] MEDS: ASPIRIN 81 MG EC TABLET PO SCH (08:55)
[2016-09-07] MEDS: PANTOPRAZOLE SODIUM 40 MG DR TABLET PO SCH (08:55)
[2016-09-07] MEDS: AMIODARONE HCL 200 MG TABLET PO SCH (08:55)
[2016-09-07] MEDS ORDERED: FUROSEMIDE 20 MG/2 ML VIAL IVP SCH (09:00)
[2016-09-07 09:17] LABS: RBC MORPHOLOGY COMMENT ABNORMAL RBC MORPH
[2016-09-07 11:18] VITALS: BP 102/57
[2016-09-07 13:25] LABS: APPEARANCE,URINE CLOUDY (CLEAR); GLUCOSE, URINE (UA) NEGATIVE (NEGATIVE); KETONES,URINE NEGATIVE (NEGATIVE); LEUKOCYTE ESTERASE ,URINE MODERATE (NEGATIVE); OCCULT BLOOD,URINE LARGE (NEGATIVE); PH,URINE 5.5 (5.0-8.0); PROTEIN,URINE TRACE (NEGATIVE)
[2016-09-07 13:42] LABS: RBC,URINE 51-100 /HPF (0-2)
[2016-09-07 13:44] LABS: SQUAMOUS EPITHELIAL CELL,UR Few /LPF (None Seen)
[2016-09-07 13:47] LABS: HYALINE CASTS, URINE 51-100 /LPF (None Seen)
[2016-09-07 13:48] LABS: RENAL EPITHELIAL CELLS,URINE Rare /LPF (None Seen)
[2016-09-07] MEDS: HYPROMELLOSE 0.5% 15 ML OPHTHALMIC SOLUTION OU SCH ×2 (15:18→20:38)
[2016-09-07] MEDS: BUMETANIDE 0.25 MG/ML 4 ML VIAL IVP SCH ×2 (15:18→20:38)
[2016-09-07 15:29] VITALS: BP 100/60
[2016-09-07 19:29] VITALS: BP 114/71
[2016-09-08] VITALS (7 sets, daily range): BP systolic 101–126; BP diastolic 58–72
[2016-09-08] MEDS: HEPARIN SODIUM,PORCINE 5,000 UNITS/ML VIAL SQ SCH ×4 (00:50→23:24)
[2016-09-08] MEDS: METOPROLOL SUCCINATE 100 MG ER TABLET PO SCH ×3 (00:51→21:00)
[2016-09-08] MEDS: LEVOTHYROXINE SODIUM 50 MCG TABLET PO SCH (06:44)
[2016-09-08 06:46] LABS: BASOPHILS % (AUTO) 0.4 % (0.0-2.0); EOSINOPHILS % (AUTO) 1.2 % (1.0-6.0); HEMATOCRIT 35.2 % (36-46); HEMOGLOBIN 11.2 g/dL (12.0-16.0); LYMPHOCYTES # (AUTO) 0.5 K/uL (1.0-4.8); LYMPHOCYTES % (AUTO) 13.6 % (22.0-44.0); MEAN CORPUSCULAR HEMOGLOBIN 32.9 pg (26.0-34.0); MEAN CORPUSCULAR HGB CONC 31.7 G/dL (31.0-37.0); MEAN CORPUSCULAR VOLUME 104 fL (80-100); MONOCYTES # (AUTO) 0.4 K/uL (0.1-1.0); MONOCYTES % (AUTO) 11.3 % (2.0-9.0); NEUTROPHILS # (AUTO) 2.6 K/uL (1.8-7.7); NEUTROPHILS % (AUTO) 73.5 % (40.0-70.0); PLATELET COUNT (AUTO) 92 K/uL (150-450); RED BLOOD CELL COUNT(AUTO) 3.39 MIL/uL (4.00-5.20); RED CELL DISTRIBUTION WIDTH 16.7 % (11.5-14.5); WHITE BLOOD COUNT (AUTO) 3.6 K/uL (4.5-11.0)
[2016-09-08 06:51] LABS: ALBUMIN 2.8 g/dL (3.4-5.0); BILIRUBIN,TOTAL 0.5 mg/dL (0.1-1.0); CALCIUM, TOTAL 8.6 mg/dL (8.8-10.5); CREATININE 1.68 mg/dL (0.60-1.30); PHOSPHORUS 3.9 mg/dL (2.5-4.9); POTASSIUM 3.9 mmol/L (3.5-5.1); TOTAL PROTEIN, SERUM 6.3 g/dL (6.4-8.2)
[2016-09-08] MEDS: CLOPIDOGREL BISULFATE 75 MG TABLET PO SCH (08:35)
[2016-09-08] MEDS: PANTOPRAZOLE SODIUM 40 MG DR TABLET PO SCH (08:35)
[2016-09-08] MEDS: BUMETANIDE 0.25 MG/ML 4 ML VIAL IVP SCH ×2 (08:35→21:13)
[2016-09-08] MEDS: LOSARTAN POTASSIUM 50 MG TABLET PO SCH (08:36)
[2016-09-08] MEDS: ASPIRIN 81 MG EC TABLET PO SCH (08:36)
[2016-09-08] MEDS: DOCUSATE SODIUM 100 MG CAPSULE PO SCH ×2 (08:36→21:11)
[2016-09-08] MEDS: FOLIC ACID 1 MG TABLET PO SCH (08:36)
[2016-09-08] MEDS: GABAPENTIN 300 MG CAPSULE PO SCH (08:36)
[2016-09-08] MEDS: AMIODARONE HCL 200 MG TABLET PO SCH (08:36)
[2016-09-08] MEDS: HYPROMELLOSE 0.5% 15 ML OPHTHALMIC SOLUTION OU SCH ×3 (08:37→21:12)
[2016-09-08] MEDS: ALBUTEROL SULFATE 2.5 MG/0.5 ML NEB SOLUTION NEB PRN ×2 (09:05→23:16)
[2016-09-08] MEDS: IPRATROPIUM BROMIDE 0.5 MG/2.5 ML NEB SOLUTION NEB PRN ×2 (09:05→23:16)
[2016-09-08 10:13] LABS: RBC MORPHOLOGY COMMENT ABNORMAL RBC MORPH
[2016-09-08] MEDS: CHOLECALCIFEROL (VIT D3) 1,000 UNITS TABLET PO SCH (12:49)
[2016-09-08] MEDS ORDERED: DEXTROSE 50%-WATER 25 GM/50 ML SYRINGE IVP PRN (14:30)
[2016-09-08] MEDS: SULFAMETHOX/TRIMETH DS 800-160 MG/TABLET PO SCH ×2 (16:02→21:11)
[2016-09-08] MEDS: INSULIN ASPART 100 UNITS/ML SQ PRN ×2 (17:44→22:16)
[2016-09-09 04:01] VITALS: BP 125/72
[2016-09-09] MEDS: LEVOTHYROXINE SODIUM 50 MCG TABLET PO SCH (05:37)
[2016-09-09 07:35] VITALS: BP 135/84
[2016-09-09 08:10] LABS: CREATININE 1.46 mg/dL (0.60-1.30); POTASSIUM 4.5 mmol/L (3.5-5.1)
[2016-09-09] MEDS: DOCUSATE SODIUM 100 MG CAPSULE PO SCH ×2 (08:28→21:17)
[2016-09-09] MEDS: CLOPIDOGREL BISULFATE 75 MG TABLET PO SCH (08:28)
[2016-09-09] MEDS: FOLIC ACID 1 MG TABLET PO SCH (08:28)
[2016-09-09] MEDS: LOSARTAN POTASSIUM 50 MG TABLET PO SCH (08:28)
[2016-09-09] MEDS: GABAPENTIN 300 MG CAPSULE PO SCH (08:28)
[2016-09-09] MEDS: AMIODARONE HCL 200 MG TABLET PO SCH (08:28)
[2016-09-09] MEDS: PANTOPRAZOLE SODIUM 40 MG DR TABLET PO SCH (08:28)
[2016-09-09] MEDS: CHOLECALCIFEROL (VIT D3) 1,000 UNITS TABLET PO SCH (08:28)
[2016-09-09] MEDS: ASPIRIN 81 MG EC TABLET PO SCH (08:28)
[2016-09-09] MEDS: SULFAMETHOX/TRIMETH DS 800-160 MG/TABLET PO SCH ×2 (08:28→21:17)
[2016-09-09] MEDS: METOPROLOL SUCCINATE 100 MG ER TABLET PO SCH ×2 (08:28→21:00)
[2016-09-09] MEDS: HYPROMELLOSE 0.5% 15 ML OPHTHALMIC SOLUTION OU SCH ×3 (08:29→21:16)
[2016-09-09] MEDS: HEPARIN SODIUM,PORCINE 5,000 UNITS/ML VIAL SQ SCH ×3 (08:29→23:28)
[2016-09-09] MEDS: BUMETANIDE 0.25 MG/ML 4 ML VIAL IVP SCH ×2 (08:59→21:16)
[2016-09-09 09:33] VITALS: BP 153/91
[2016-09-09 11:43] VITALS: BP 112/61
[2016-09-09] MEDS: INSULIN ASPART 100 UNITS/ML SQ PRN ×2 (11:49→21:20)
[2016-09-09 15:21] VITALS: BP 124/77
[2016-09-09 19:19] VITALS: BP 108/54
[2016-09-09] MEDS: IPRATROPIUM BROMIDE 0.5 MG/2.5 ML NEB SOLUTION NEB PRN (19:50)
[2016-09-09] MEDS: ALBUTEROL SULFATE 2.5 MG/0.5 ML NEB SOLUTION NEB PRN (19:50)
[2016-09-10] VITALS (8 sets, daily range): BP systolic 107–156; BP diastolic 67–91
[2016-09-10] MEDS: LEVOTHYROXINE SODIUM 50 MCG TABLET PO SCH (06:17)
[2016-09-10 07:22] LABS: ANION GAP 6 mmol/L (8-16); CALCIUM, TOTAL 8.7 mg/dL (8.8-10.5); CARBON DIOXIDE 34 mmol/L (22-29); CHLORIDE 106 mmol/L (98-107); CREATINE KINASE, TOTAL 63 U/L (26-192); CREATININE 1.54 mg/dL (0.60-1.30); GLOMERULAR FILTR. RATE CALC 38 mL/min (>60); SODIUM SERUM 146 mmol/L (136-145); TOTAL PROTEIN, SERUM 6.7 g/dL (6.4-8.2); UREA NITROGEN, BLOOD 45 mg/dL (7-18)
[2016-09-10 07:44] LABS: LACTATE DEHYDROGENASE 251 U/L (81-234)
[2016-09-10] MEDS: HEPARIN SODIUM,PORCINE 5,000 UNITS/ML VIAL SQ SCH ×2 (08:00→14:40)
[2016-09-10 08:08] LABS: B-TYPE NATRIURETIC PEPTIDE 1170 pg/mL (0-100)
[2016-09-10] MEDS ORDERED: FentaNYL CITRATE-PF 100 MCG/2 ML VIAL ONE (09:33)
[2016-09-10] MEDS ORDERED: BENZOCAINE 20% 50 MCG/SPRAY 57 GM ONE (09:34)
[2016-09-10] MEDS ORDERED: MIDAZOLAM HCL 2 MG/2 ML VIAL ONE (09:34)
[2016-09-10] MEDS ORDERED: SODIUM CHLORIDE 0.9% 500 ML IV ONE (09:49)
[2016-09-10] MEDS ORDERED: FentaNYL CITRATE-PF 100 MCG/2 ML VIAL IVP ONE (09:50)
[2016-09-10] MEDS ORDERED: MIDAZOLAM HCL 2 MG/2 ML VIAL IVP ONE (09:50)
[2016-09-10] MEDS ORDERED: BENZOCAINE 20% 30 ML SOLUTION TP ONE (09:52)
[2016-09-10] MEDS ORDERED: FLUMAZENIL 0.1 MG/ML 5 ML VIAL IVP ONE ×2 (10:08→10:14)
[2016-09-10] MEDS ORDERED: NALOXONE HCL 0.4 MG/ML VIAL IVP ONE (10:08)
[2016-09-10] MEDS ORDERED: NALOXONE HCL 0.4 MG/ML VIAL ONE (10:15)
[2016-09-10] MEDS: PANTOPRAZOLE SODIUM 40 MG DR TABLET PO SCH (14:40)
[2016-09-10] MEDS: CLOPIDOGREL BISULFATE 75 MG TABLET PO SCH (14:40)
[2016-09-10] MEDS: CHOLECALCIFEROL (VIT D3) 1,000 UNITS TABLET PO SCH (14:40)
[2016-09-10] MEDS: ASPIRIN 81 MG EC TABLET PO SCH (14:40)
[2016-09-10] MEDS: LOSARTAN POTASSIUM 50 MG TABLET PO SCH (14:40)
[2016-09-10] MEDS: GABAPENTIN 300 MG CAPSULE PO SCH (14:41)
[2016-09-10] MEDS: HYPROMELLOSE 0.5% 15 ML OPHTHALMIC SOLUTION OU SCH ×3 (14:41→20:19)
[2016-09-10] MEDS: METOPROLOL SUCCINATE 100 MG ER TABLET PO SCH ×2 (14:41→20:19)
[2016-09-10] MEDS: DOCUSATE SODIUM 100 MG CAPSULE PO SCH ×2 (14:41→20:19)
[2016-09-10] MEDS: FOLIC ACID 1 MG TABLET PO SCH (14:41)
[2016-09-10] MEDS: AMIODARONE HCL 200 MG TABLET PO SCH (14:41)
[2016-09-10] MEDS: SULFAMETHOX/TRIMETH DS 800-160 MG/TABLET PO SCH ×2 (14:41→20:19)
[2016-09-10] MEDS: BUMETANIDE 0.25 MG/ML 4 ML VIAL IVP SCH ×2 (14:41→20:19)
[2016-09-10 15:31] LABS: APPEARANCE,UNSPUN,BODY FLUID CLOUDY (CLEAR); COLOR,BODY FLUID YELLOW (LT YELLOW)
[2016-09-10 15:33] LABS: OTHER CELLS,BODY FLUID MESOTHELIALS
[2016-09-10] MEDS: INSULIN ASPART 100 UNITS/ML SQ PRN ×2 (17:34→20:20)
[2016-09-10] MEDS: MAGNESIUM HYDROXIDE SUSPENSION 30 ML UDCUP PO PRN (20:20)
[2016-09-11] MEDS: HEPARIN SODIUM,PORCINE 5,000 UNITS/ML VIAL SQ SCH ×4 (00:22→23:38)
[2016-09-11 04:02] VITALS: BP 120/65
[2016-09-11] MEDS: LEVOTHYROXINE SODIUM 50 MCG TABLET PO SCH (06:00)
[2016-09-11 07:12] LABS: BASOPHILS # (AUTO) 0.02 K/uL (0.00-0.20); BASOPHILS % (AUTO) 0.5 % (0.0-2.0); EOSINOPHILS # (AUTO) 0.05 K/uL (0.00-0.70); EOSINOPHILS % (AUTO) 1.13 % (1.0-6.0); HEMATOCRIT 37.4 % (36-46); LYMPHOCYTES # (AUTO) 0.6 K/uL (1.0-4.8); MEAN CORPUSCULAR HEMOGLOBIN 32.7 pg (26.0-34.0); MEAN CORPUSCULAR HGB CONC 31.9 G/dL (31.0-37.0); MEAN CORPUSCULAR VOLUME 102 fL (80-100); MONOCYTES # (AUTO) 0.4 K/uL (0.1-1.0); MONOCYTES % (AUTO) 7.8 % (2.0-9.0); NEUTROPHILS # (AUTO) 3.5 K/uL (1.8-7.7); NEUTROPHILS % (AUTO) 76.6 % (40.0-70.0); PLATELET COUNT (AUTO) 94 K/uL (150-450); RED BLOOD CELL COUNT(AUTO) 3.66 MIL/uL (4.00-5.20); WHITE BLOOD COUNT (AUTO) 4.5 K/uL (4.5-11.0)
[2016-09-11 07:13] LABS: CALCIUM, TOTAL 8.9 mg/dL (8.8-10.5); CREATININE 1.36 mg/dL (0.60-1.30); POTASSIUM 4.5 mmol/L (3.5-5.1)
[2016-09-11 07:32] LABS: RBC MORPHOLOGY COMMENT ABNORMAL RBC MORPH
[2016-09-11 07:45] VITALS: BP 134/73
[2016-09-11] MEDS: AMIODARONE HCL 200 MG TABLET PO SCH (08:53)
[2016-09-11] MEDS: CHOLECALCIFEROL (VIT D3) 1,000 UNITS TABLET PO SCH (08:53)
[2016-09-11] MEDS: GABAPENTIN 300 MG CAPSULE PO SCH (08:53)
[2016-09-11] MEDS: CLOPIDOGREL BISULFATE 75 MG TABLET PO SCH (08:53)
[2016-09-11] MEDS: LOSARTAN POTASSIUM 50 MG TABLET PO SCH (08:54)
[2016-09-11] MEDS: ASPIRIN 81 MG EC TABLET PO SCH (08:55)
[2016-09-11] MEDS: DOCUSATE SODIUM 100 MG CAPSULE PO SCH ×2 (08:55→20:25)
[2016-09-11] MEDS: SULFAMETHOX/TRIMETH DS 800-160 MG/TABLET PO SCH ×2 (08:55→20:25)
[2016-09-11] MEDS: METOPROLOL SUCCINATE 100 MG ER TABLET PO SCH ×2 (08:55→20:25)
[2016-09-11] MEDS: PANTOPRAZOLE SODIUM 40 MG DR TABLET PO SCH (08:55)
[2016-09-11] MEDS: FOLIC ACID 1 MG TABLET PO SCH (08:55)
[2016-09-11] MEDS: HYPROMELLOSE 0.5% 15 ML OPHTHALMIC SOLUTION OU SCH ×3 (08:56→20:25)
[2016-09-11] MEDS: BUMETANIDE 0.25 MG/ML 4 ML VIAL IVP SCH ×2 (08:56→20:25)
[2016-09-11 11:55] VITALS: BP 99/61
[2016-09-11] MEDS: INSULIN ASPART 100 UNITS/ML SQ PRN ×2 (12:09→20:33)
[2016-09-11 15:38] VITALS: BP 103/64
[2016-09-11 17:33] LABS: TOTAL PROTEIN,BODY FLUID,REF 2.9 g/dL
[2016-09-11 19:52] VITALS: BP 114/67
[2016-09-12] VITALS (7 sets, daily range): BP systolic 109–131; BP diastolic 55–76
[2016-09-12] MEDS: LEVOTHYROXINE SODIUM 50 MCG TABLET PO SCH (05:39)
[2016-09-12 06:21] LABS: CALCIUM, TOTAL 8.5 mg/dL (8.8-10.5); CREATININE 1.53 mg/dL (0.60-1.30); MAGNESIUM 1.9 mg/dL (1.80-2.40); PHOSPHORUS 2.9 mg/dL (2.5-4.9); POTASSIUM 4.2 mmol/L (3.5-5.1)
[2016-09-12] MEDS: GABAPENTIN 300 MG CAPSULE PO SCH (09:40)
[2016-09-12] MEDS: DOCUSATE SODIUM 100 MG CAPSULE PO SCH ×2 (09:40→22:00)
[2016-09-12] MEDS: SULFAMETHOX/TRIMETH DS 800-160 MG/TABLET PO SCH ×2 (09:40→22:00)
[2016-09-12] MEDS: FOLIC ACID 1 MG TABLET PO SCH (09:41)
[2016-09-12] MEDS: CLOPIDOGREL BISULFATE 75 MG TABLET PO SCH (09:41)
[2016-09-12] MEDS: HYPROMELLOSE 0.5% 15 ML OPHTHALMIC SOLUTION OU SCH ×3 (09:41→22:00)
[2016-09-12] MEDS: AMIODARONE HCL 200 MG TABLET PO SCH (09:41)
[2016-09-12] MEDS: CHOLECALCIFEROL (VIT D3) 1,000 UNITS TABLET PO SCH (09:41)
[2016-09-12] MEDS: ASPIRIN 81 MG EC TABLET PO SCH (09:41)
[2016-09-12] MEDS: METOPROLOL SUCCINATE 100 MG ER TABLET PO SCH ×2 (09:41→22:00)
[2016-09-12] MEDS: HEPARIN SODIUM,PORCINE 5,000 UNITS/ML VIAL SQ SCH ×2 (09:41→17:28)
[2016-09-12] MEDS: PANTOPRAZOLE SODIUM 40 MG DR TABLET PO SCH (09:41)
[2016-09-12] MEDS: BUMETANIDE 0.25 MG/ML 4 ML VIAL IVP SCH (09:53)
[2016-09-12] MEDS: INSULIN ASPART 100 UNITS/ML SQ PRN (12:19)
[2016-09-12] MEDS: MAGNESIUM HYDROXIDE SUSPENSION 30 ML UDCUP PO PRN (17:29)
[2016-09-13] MEDS: HEPARIN SODIUM,PORCINE 5,000 UNITS/ML VIAL SQ SCH ×3 (00:06→16:01)
[2016-09-13 05:18] VITALS: BP 109/63
[2016-09-13] MEDS: LEVOTHYROXINE SODIUM 50 MCG TABLET PO SCH (06:11)
[2016-09-13] MEDS: INSULIN ASPART 100 UNITS/ML SQ PRN ×3 (06:12→21:03)
[2016-09-13 07:23] VITALS: BP 102/69
[2016-09-13 07:24] LABS: HEMOGLOBIN A1C 7.8 % (4.5-6.2)
[2016-09-13 07:32] LABS: ANION GAP 3 mmol/L (8-16); CALCIUM, TOTAL 8.7 mg/dL (8.8-10.5); CARBON DIOXIDE 35 mmol/L (22-29); CHLORIDE 106 mmol/L (98-107); CREATINE KINASE, TOTAL 66 U/L (26-192); CREATININE 1.58 mg/dL (0.60-1.30); GLOMERULAR FILTR. RATE CALC 37 mL/min (>60); PHOSPHORUS 2.9 mg/dL (2.5-4.9); POTASSIUM 4.7 mmol/L (3.5-5.1); SODIUM SERUM 144 mmol/L (136-145); UREA NITROGEN, BLOOD 44 mg/dL (7-18)
[2016-09-13 07:47] LABS: B-TYPE NATRIURETIC PEPTIDE 831 pg/mL (0-100)
[2016-09-13] MEDS: BUMETANIDE 0.25 MG/ML 4 ML VIAL IVP SCH (08:25)
[2016-09-13] MEDS: CHOLECALCIFEROL (VIT D3) 1,000 UNITS TABLET PO SCH (08:26)
[2016-09-13] MEDS: CLOPIDOGREL BISULFATE 75 MG TABLET PO SCH (08:26)
[2016-09-13] MEDS: ASPIRIN 81 MG EC TABLET PO SCH (08:26)
[2016-09-13] MEDS: PANTOPRAZOLE SODIUM 40 MG DR TABLET PO SCH (08:27)
[2016-09-13] MEDS: GABAPENTIN 300 MG CAPSULE PO SCH (08:27)
[2016-09-13] MEDS: FOLIC ACID 1 MG TABLET PO SCH (08:27)
[2016-09-13] MEDS: DOCUSATE SODIUM 100 MG CAPSULE PO SCH ×2 (08:27→20:56)
[2016-09-13] MEDS: METOPROLOL SUCCINATE 100 MG ER TABLET PO SCH ×2 (08:27→20:56)
[2016-09-13] MEDS: HYPROMELLOSE 0.5% 15 ML OPHTHALMIC SOLUTION OU SCH ×3 (08:28→20:56)
[2016-09-13] MEDS: SULFAMETHOX/TRIMETH DS 800-160 MG/TABLET PO SCH ×2 (08:28→20:56)
[2016-09-13 11:06] VITALS: BP 125/78
[2016-09-13] MEDS ORDERED: VITAD400 PO (13:15)
[2016-09-13] MEDS ORDERED: DSS100 PO (13:16)
[2016-09-13] MEDS ORDERED: ACET-2247 PO (13:18)
[2016-09-13] MEDS ORDERED: BACTDSB PO (13:18)
[2016-09-13] MEDS ORDERED: BISA5TAB12 PO (13:20)
[2016-09-13] MEDS ORDERED: ZOLP5 PO (13:21)
[2016-09-13 14:49] VITALS: BP 106/52
[2016-09-13 19:51] VITALS: BP 107/65
[2016-09-13 23:38] VITALS: BP 105/66
[2016-09-14] MEDS: HEPARIN SODIUM,PORCINE 5,000 UNITS/ML VIAL SQ SCH ×3 (00:11→16:01)
[2016-09-14 04:45] VITALS: BP 105/76
[2016-09-14] MEDS: LEVOTHYROXINE SODIUM 50 MCG TABLET PO SCH (06:01)
[2016-09-14 06:49] LABS: CALCIUM, TOTAL 8.7 mg/dL (8.8-10.5); CREATININE 1.56 mg/dL (0.60-1.30); MAGNESIUM 2.1 mg/dL (1.80-2.40); POTASSIUM 4.7 mmol/L (3.5-5.1)
[2016-09-14 06:52] LABS: BASOPHILS % (AUTO) 0.8 % (0.0-2.0); EOSINOPHILS % (AUTO) 2.4 % (1.0-6.0); HEMATOCRIT 35.1 % (36-46); HEMOGLOBIN 11.2 g/dL (12.0-16.0); LYMPHOCYTES # (AUTO) 0.7 K/uL (1.0-4.8); LYMPHOCYTES % (AUTO) 17.3 % (22.0-44.0); MEAN CORPUSCULAR HEMOGLOBIN 32.8 pg (26.0-34.0); MEAN CORPUSCULAR HGB CONC 31.8 G/dL (31.0-37.0); MEAN CORPUSCULAR VOLUME 103 fL (80-100); MONOCYTES # (AUTO) 0.5 K/uL (0.1-1.0); MONOCYTES % (AUTO) 11.7 % (2.0-9.0); NEUTROPHILS # (AUTO) 2.7 K/uL (1.8-7.7); NEUTROPHILS % (AUTO) 67.8 % (40.0-70.0); PLATELET COUNT (AUTO) 86 K/uL (150-450); RED BLOOD CELL COUNT(AUTO) 3.41 MIL/uL (4.00-5.20); RED CELL DISTRIBUTION WIDTH 17.2 % (11.5-14.5)
[2016-09-14 07:44] VITALS: BP 108/64
[2016-09-14] MEDS: PANTOPRAZOLE SODIUM 40 MG DR TABLET PO SCH (08:34)
[2016-09-14] MEDS: HYPROMELLOSE 0.5% 15 ML OPHTHALMIC SOLUTION OU SCH ×2 (08:34→16:01)
[2016-09-14] MEDS: ASPIRIN 81 MG EC TABLET PO SCH (08:35)
[2016-09-14] MEDS: FOLIC ACID 1 MG TABLET PO SCH (08:35)
[2016-09-14] MEDS: MAGNESIUM HYDROXIDE SUSPENSION 30 ML UDCUP PO PRN (08:36)
[2016-09-14] MEDS: DOCUSATE SODIUM 100 MG CAPSULE PO SCH (08:36)
[2016-09-14] MEDS: METOPROLOL SUCCINATE 100 MG ER TABLET PO SCH (08:36)
[2016-09-14] MEDS: CLOPIDOGREL BISULFATE 75 MG TABLET PO SCH (08:36)
[2016-09-14] MEDS: CHOLECALCIFEROL (VIT D3) 1,000 UNITS TABLET PO SCH (08:36)
[2016-09-14] MEDS: GABAPENTIN 300 MG CAPSULE PO SCH (08:36)
[2016-09-14] MEDS: SULFAMETHOX/TRIMETH DS 800-160 MG/TABLET PO SCH (08:37)
[2016-09-14] MEDS: BUMETANIDE 0.25 MG/ML 4 ML VIAL IVP SCH (08:37)
[2016-09-14 11:37] VITALS: BP 110/74
[2016-09-14] MEDS ORDERED: BUMETANIDE 0.25 MG/ML 10 ML VIAL IVP ONE (13:00)
[2016-09-14] MEDS ORDERED: SENNA 187 MG TABLET PO SCH (13:00)
[2016-09-14] MEDS ORDERED: SENNA 187 MG TABLET PO PRN (13:30)
[2016-09-14 15:18] VITALS: BP 108/56
[2016-09-14 18:18] LABS: GLUCOSE,POINT OF CARE 106 MG/DL (70-110)
[2016-09-14 18:18] LABS: GLUCOSE COMMENT 1 Received Meds; GLUCOSE,POINT OF CARE 225 MG/DL (70-110)
[2016-09-14 18:18] LABS: GLUCOSE COMMENT 1 Received Meds; GLUCOSE,POINT OF CARE 203 MG/DL (70-110)
[2016-09-14 18:19] LABS: GLUCOSE COMMENT 1 Received Meds; GLUCOSE,POINT OF CARE 154 MG/DL (70-110)
[2016-09-14 18:19] LABS: GLUCOSE,POINT OF CARE 176 MG/DL (70-110)
[2016-09-14 18:19] LABS: GLUCOSE COMMENT 1 Received Meds; GLUCOSE,POINT OF CARE 168 MG/DL (70-110)
[2016-09-14 18:19] LABS: GLUCOSE COMMENT 1 Received Meds; GLUCOSE,POINT OF CARE 178 MG/DL (70-110)
[2016-09-14 18:19] LABS: GLUCOSE COMMENT 1 Received Meds; GLUCOSE,POINT OF CARE 171 MG/DL (70-110)
[2016-09-15 06:31] LABS: GLUCOSE COMMENT 1 Received Meds; GLUCOSE,POINT OF CARE 191 MG/DL (70-110)
[2016-09-15 06:33] LABS: GLUCOSE COMMENT 1 Received Meds; GLUCOSE,POINT OF CARE 223 MG/DL (70-110)
[2016-09-15 06:33] LABS: GLUCOSE,POINT OF CARE 138 MG/DL (70-110)
[2016-09-15 06:33] LABS: GLUCOSE,POINT OF CARE 142 MG/DL (70-110)
[2016-09-15 06:34] LABS: GLUCOSE COMMENT 1 Received Meds; GLUCOSE,POINT OF CARE 131 MG/DL (70-110)
[2016-09-15 06:34] LABS: GLUCOSE,POINT OF CARE 190 MG/DL (70-110)
[2016-09-15 06:34] LABS: GLUCOSE COMMENT 1 Received Meds; GLUCOSE,POINT OF CARE 130 MG/DL (70-110)
[2016-09-15 06:34] LABS: GLUCOSE COMMENT 1 Received Meds; GLUCOSE,POINT OF CARE 222 MG/DL (70-110)
[2016-09-15 06:34] LABS: GLUCOSE,POINT OF CARE 135 MG/DL (70-110)
[2016-09-15 06:34] LABS: GLUCOSE,POINT OF CARE 103 MG/DL (70-110)
[2016-09-15 06:34] LABS: GLUCOSE COMMENT 1 Received Meds; GLUCOSE,POINT OF CARE 168 MG/DL (70-110)
[2016-09-15 06:34] LABS: GLUCOSE,POINT OF CARE 137 MG/DL (70-110)
[2016-09-15 06:35] LABS: GLUCOSE,POINT OF CARE 137 MG/DL (70-110)
[2016-09-15 06:35] LABS: GLUCOSE,POINT OF CARE 114 MG/DL (70-110)
[2016-09-17 10:23] LABS: GLUCOSE COMMENT 1 Received Meds; GLUCOSE,POINT OF CARE 175 MG/DL (70-110)
[2016-09-17 10:23] LABS: GLUCOSE COMMENT 1 Received Meds; GLUCOSE,POINT OF CARE 139 MG/DL (70-110)
[2016-09-17 10:23] LABS: GLUCOSE,POINT OF CARE 104 MG/DL (70-110)
[2016-11-01] MEDS ORDERED: ACET250T27 PO ×2 (12:52→12:53)
[2016-11-01] MEDS ORDERED: AUD NEB (12:52)
[2016-11-01] MEDS ORDERED: FLUT16H NASAL (13:12)
[2016-11-01] MEDS ORDERED: METO-325 PO (13:13)
[2016-11-01] MEDS ORDERED: LEVO250 PO (13:15)
== END 2016-09-14 16:55 | DRG 291 ==
LOC: EMS 21:22 → 5S 23:42
PROVIDERS: ADMIT Hospitalist; ATTEND Family Medicine
PROC: B24BZZ4 Ultrasonography of Heart with Aorta, Transesophageal (ICD-10-PCS; principal; 2016-09-10)
PROC: 0W993ZZ Drainage of Right Pleural Cavity, Percutaneous Approach (ICD-10-PCS; 2016-09-10)
DX: I13.0 Hypertensive heart and chronic kidney disease with heart failure and stage 1 through stage 4 chronic kidney disease, or unspecified chronic kidney disease (principal); I50.43 Acute on chronic combined systolic (congestive) and diastolic (congestive) heart failure; N17.9 Acute kidney failure, unspecified; J90 Pleural effusion, not elsewhere classified; I08.1 Rheumatic disorders of both mitral and tricuspid valves; I48.91 Unspecified atrial fibrillation; R33.9 Retention of urine, unspecified; I25.10 Atherosclerotic heart disease of native coronary artery without angina pectoris; E03.9 Hypothyroidism, unspecified; N18.3 Chronic kidney disease, stage 3 (moderate); J44.9 Chronic obstructive pulmonary disease, unspecified; J45.909 Unspecified asthma, uncomplicated; E11.22 Type 2 diabetes mellitus with diabetic chronic kidney disease; Z96.651 Presence of right artificial knee joint; E11.21 Type 2 diabetes mellitus with diabetic nephropathy; I25.5 Ischemic cardiomyopathy; R60.9 Edema, unspecified; I27.2 Other secondary pulmonary hypertension; D53.9 Nutritional anemia, unspecified; B95.2 Enterococcus as the cause of diseases classified elsewhere; Z79.82 Long term (current) use of aspirin; Z88.1 Allergy status to other antibiotic agents; Z95.5 Presence of coronary angioplasty implant and graft; Z79.899 Other long term (current) drug therapy; Z79.02 Long term (current) use of antithrombotics/antiplatelets; Z88.8 Allergy status to other drugs, medicaments and biological substances; Z95.1 Presence of aortocoronary bypass graft; Z79.01 Long term (current) use of anticoagulants; Z79.4 Long term (current) use of insulin
CPT/HCPCS: 32555; 71020; 76770; 76942; 82306; 82465; 82945; 82962; 83036; 83615; 83735; 83986; 84100; 84155; 84157; 87015; 87070; 87081; 87086; 87101; 87205; 88108; 89051; 93005; 93312; 94640; 96374; 97116; 97162; 97530; 99285; J1644; J1940; J2250; J2310; J3010; J3490

== ENCOUNTER 2016-09-28 23:46 | Inpatient (IN) | payer MEDICAID, MEDICARE ==
[~2016-09-28] VITALS: Ht 149.9 cm; Wt 66.0 kg
[~2016-09-28 23:46] MED LIST changes: +ACET-2247 PO; -AMIO200T2 PO; +BACTDSB PO; +BISA5TAB12 PO; +DSS100 PO; +VITAD400 PO; +ZOLP5 PO
[2016-09-29] VITALS (7 sets, daily range): BP systolic 122–138; BP diastolic 75–94
[2016-09-29 00:02] LABS: GLUCOSE,POINT OF CARE 217 MG/DL (70-110)
[2016-09-29 01:11] LABS: BASOPHILS % (AUTO) 0.4 % (0.0-2.0); EOSINOPHILS % (AUTO) 0.6 % (1.0-6.0); HEMOGLOBIN 11.4 g/dL (12.0-16.0); LYMPHOCYTES # (AUTO) 0.9 K/uL (1.0-4.8); LYMPHOCYTES % (AUTO) 22.6 % (22.0-44.0); MEAN CORPUSCULAR HEMOGLOBIN 32.3 pg (26.0-34.0); MEAN CORPUSCULAR HGB CONC 31.6 G/dL (31.0-37.0); MEAN CORPUSCULAR VOLUME 102 fL (80-100); MONOCYTES # (AUTO) 0.3 K/uL (0.1-1.0); MONOCYTES % (AUTO) 8.1 % (2.0-9.0); NEUTROPHILS # (AUTO) 2.7 K/uL (1.8-7.7); NEUTROPHILS % (AUTO) 68.3 % (40.0-70.0); PLATELET COUNT (AUTO) 129 K/uL (150-450); RED BLOOD CELL COUNT(AUTO) 3.52 MIL/uL (4.00-5.20); RED CELL DISTRIBUTION WIDTH 16.7 % (11.5-14.5)
[2016-09-29 01:24] LABS: CALCIUM, TOTAL 8.6 mg/dL (8.8-10.5); CREATININE 1.56 mg/dL (0.60-1.30); POTASSIUM 4.1 mmol/L (3.5-5.1)
[2016-09-29 01:30] LABS: ALBUMIN 2.8 g/dL (3.4-5.0); BILIRUBIN,TOTAL 0.3 mg/dL (0.1-1.0); TOTAL PROTEIN, SERUM 6.7 g/dL (6.4-8.2)
[2016-09-29 01:32] LABS: LACTIC ACID 1.7 mmol/L (0.4-2.0)
[2016-09-29 01:44] LABS: RBC MORPHOLOGY COMMENT ABNORMAL RBC MORPH
[2016-09-29] MEDS ORDERED: ONDANSETRON HCL 4 MG/2 ML VIAL IVP PRN (02:00)
[2016-09-29] MEDS ORDERED: BUMETANIDE 0.25 MG/ML 10 ML VIAL IVP ONE ×2 (02:00→05:45)
[2016-09-29] MEDS ORDERED: 0.9% SODIUM CHLORIDE 10 ML SYRINGE IVP PRN (02:00)
[2016-09-29] MEDS ORDERED: ACETAMINOPHEN 325 MG TABLET PO PRN (02:00)
[2016-09-29] MEDS ORDERED: CLOPIDOGREL BISULFATE 75 MG TABLET PO ONE (02:30)
[2016-09-29] MEDS ORDERED: ASPIRIN 81 MG CHEWABLE TABLET PO ONE (02:30)
[2016-09-29 03:02] LABS: APPEARANCE,URINE CLEAR (CLEAR); GLUCOSE, URINE (UA) NEGATIVE (NEGATIVE); KETONES,URINE NEGATIVE (NEGATIVE); LEUKOCYTE ESTERASE ,URINE SMALL (NEGATIVE); OCCULT BLOOD,URINE LARGE (NEGATIVE); PROTEIN,URINE NEGATIVE (NEGATIVE)
[2016-09-29 03:27] LABS: SQUAMOUS EPITHELIAL CELL,UR Few /LPF (None Seen)
[2016-09-29 08:12] LABS: GLUCOSE,POINT OF CARE 153 MG/DL (70-110)
[2016-09-29] MEDS: ALBUTEROL SULFATE 2.5 MG/0.5 ML NEB SOLUTION NEB PRN (10:48)
[2016-09-29] MEDS: IPRATROPIUM BROMIDE 0.5 MG/2.5 ML NEB SOLUTION NEB PRN (10:48)
[2016-09-29 11:12] LABS: GLUCOSE,POINT OF CARE 204 MG/DL (70-110)
[2016-09-29] MEDS ORDERED: BUMETANIDE 1 MG TABLET PO SCH (11:30)
[2016-09-29] MEDS ORDERED: DEXTROSE 50%-WATER 25 GM/50 ML SYRINGE IVP PRN (11:30)
[2016-09-29] MEDS: INSULIN ASPART 100 UNITS/ML SQ PRN ×2 (11:51→22:07)
[2016-09-29] MEDS: CLOPIDOGREL BISULFATE 75 MG TABLET PO SCH (13:05)
[2016-09-29] MEDS: METOPROLOL SUCCINATE 100 MG ER TABLET PO SCH ×2 (13:06→23:36)
[2016-09-29] MEDS: LOSARTAN POTASSIUM 50 MG TABLET PO SCH (13:06)
[2016-09-29] MEDS: GABAPENTIN 300 MG CAPSULE PO SCH (13:08)
[2016-09-29] MEDS: ASPIRIN 81 MG EC TABLET PO SCH (13:08)
[2016-09-29 14:12] LABS: GLUCOSE,POINT OF CARE 173 MG/DL (70-110)
[2016-09-29] MEDS: AMIODARONE HCL 200 MG TABLET PO SCH (17:59)
[2016-09-29 18:27] LABS: GLUCOSE,POINT OF CARE 154 MG/DL (70-110)
[2016-09-29] MEDS: BUMETANIDE 0.25 MG/ML 4 ML VIAL IVP SCH (22:04)
[2016-09-30] MEDS ORDERED: 0.9% SODIUM CHLORIDE 10 ML SYRINGE IVP PRN (04:15)
[2016-09-30] MEDS ORDERED: OxyCODONE HCL/ACETAMINOPHEN 5-325 MG TABLET PO PRN ×2 (04:15)
[2016-09-30] MEDS ORDERED: ACETAMINOPHEN 325 MG TABLET PO PRN (04:15)
[2016-09-30] MEDS ORDERED: MAGNESIUM HYDROXIDE SUSPENSION 30 ML UDCUP PO PRN (04:15)
[2016-09-30] MEDS ORDERED: ONDANSETRON HCL 4 MG/2 ML VIAL IVP PRN (04:15)
[2016-09-30 04:40] VITALS: BP 120/77
[2016-09-30 08:26] VITALS: BP 125/75
[2016-09-30] MEDS: ASPIRIN 81 MG EC TABLET PO SCH (08:31)
[2016-09-30] MEDS: GABAPENTIN 300 MG CAPSULE PO SCH (08:31)
[2016-09-30] MEDS: CLOPIDOGREL BISULFATE 75 MG TABLET PO SCH (08:31)
[2016-09-30] MEDS: BUMETANIDE 0.25 MG/ML 4 ML VIAL IVP SCH ×4 (08:31→20:45)
[2016-09-30] MEDS: AMIODARONE HCL 200 MG TABLET PO SCH (08:31)
[2016-09-30] MEDS: DOCUSATE SODIUM 100 MG CAPSULE PO SCH ×2 (08:31→20:46)
[2016-09-30] MEDS: PANTOPRAZOLE SODIUM 40 MG/VIAL IVP SCH (08:31)
[2016-09-30] MEDS: METOPROLOL SUCCINATE 100 MG ER TABLET PO SCH ×2 (08:31→20:46)
[2016-09-30] MEDS: LOSARTAN POTASSIUM 50 MG TABLET PO SCH (10:41)
[2016-09-30 12:06] VITALS: BP 129/76
[2016-09-30] MEDS: INSULIN ASPART 100 UNITS/ML SQ PRN ×2 (12:12→17:44)
[2016-09-30 13:38] LABS: GLUCOSE COMMENT 1 Received Meds; GLUCOSE,POINT OF CARE 152 MG/DL (70-110)
[2016-09-30 13:42] LABS: GLUCOSE COMMENT 1 Received Meds; GLUCOSE,POINT OF CARE 146 MG/DL (70-110)
[2016-09-30 13:42] LABS: GLUCOSE,POINT OF CARE 122 MG/DL (70-110)
[2016-09-30] MEDS ORDERED: VITAD1000 PO (15:32)
[2016-09-30 15:48] LABS: CREATINE KINASE, TOTAL 72 U/L (26-192)
[2016-09-30 16:20] VITALS: BP 124/80
[2016-09-30 17:28] LABS: APPEARANCE,URINE CLOUDY (CLEAR); GLUCOSE, URINE (UA) NEGATIVE (NEGATIVE); KETONES,URINE NEGATIVE (NEGATIVE); OCCULT BLOOD,URINE LARGE (NEGATIVE); PH,URINE 5.5 (5.0-8.0); PROTEIN,URINE POS 1+ (NEGATIVE)
[2016-09-30 17:38] LABS: ADD UA MICROSCOPIC YES; FINE GRANULAR CASTS,URINE 0-2 /LPF (None Seen); HYALINE CASTS, URINE 0-2 /LPF (None Seen); LEUKOCYTE ESTERASE ,URINE MODERATE (NEGATIVE); RBC,URINE 51-100 /HPF (0-2); SQUAMOUS EPITHELIAL CELL,UR Few /LPF (None Seen)
[2016-09-30] MEDS ORDERED: SODIUM CHLORIDE 0.9% 100 ML ONE (18:41)
[2016-09-30] MEDS: CefTRIAXone 1 GM/DEXTROSE 50 ML IV SCH (18:42)
[2016-09-30 19:52] VITALS: BP 117/74
[2016-09-30 20:47] LABS: GLUCOSE COMMENT 1 Received Meds; GLUCOSE,POINT OF CARE 151 MG/DL (70-110)
[2016-09-30] MEDS: INSULIN DETEMIR 100 UNITS/ML SQ SCH (21:03)
[2016-09-30 23:53] VITALS: BP 101/55
[2016-10-01] VITALS (7 sets, daily range): BP systolic 99–122; BP diastolic 55–75
[2016-10-01] MEDS ORDERED: 0.9% SODIUM CHLORIDE 5 ML NEB SOLUTION NEB ONE (05:54)
[2016-10-01] MEDS: IPRATROPIUM BROMIDE 0.5 MG/2.5 ML NEB SOLUTION NEB PRN (05:59)
[2016-10-01] MEDS: ALBUTEROL SULFATE 2.5 MG/0.5 ML NEB SOLUTION NEB PRN (05:59)
[2016-10-01 06:46] LABS: BASOPHILS % (AUTO) 0.6 % (0.0-2.0); EOSINOPHILS % (AUTO) 1.2 % (1.0-6.0); HEMOGLOBIN 10.8 g/dL (12.0-16.0); LYMPHOCYTES # (AUTO) 0.9 K/uL (1.0-4.8); LYMPHOCYTES % (AUTO) 24.5 % (22.0-44.0); MEAN CORPUSCULAR HEMOGLOBIN 32.5 pg (26.0-34.0); MEAN CORPUSCULAR HGB CONC 31.7 G/dL (31.0-37.0); MEAN CORPUSCULAR VOLUME 103 fL (80-100); MONOCYTES # (AUTO) 0.3 K/uL (0.1-1.0); MONOCYTES % (AUTO) 9.3 % (2.0-9.0); NEUTROPHILS # (AUTO) 2.2 K/uL (1.8-7.7); NEUTROPHILS % (AUTO) 64.4 % (40.0-70.0); PLATELET COUNT (AUTO) 109 K/uL (150-450); RED BLOOD CELL COUNT(AUTO) 3.31 MIL/uL (4.00-5.20); WHITE BLOOD COUNT (AUTO) 3.5 K/uL (4.5-11.0)
[2016-10-01 07:00] LABS: ANION GAP 0 mmol/L (8-16); CALCIUM, TOTAL 8.3 mg/dL (8.8-10.5); CARBON DIOXIDE 39 mmol/L (22-29); CHLORIDE 104 mmol/L (98-107); CREATINE KINASE, TOTAL 60 U/L (26-192); CREATININE 1.28 mg/dL (0.60-1.30); GLOMERULAR FILTR. RATE CALC 48 mL/min (>60); PHOSPHORUS 4.1 mg/dL (2.5-4.9); SODIUM SERUM 143 mmol/L (136-145); UREA NITROGEN, BLOOD 40 mg/dL (7-18)
[2016-10-01 07:37] LABS: B-TYPE NATRIURETIC PEPTIDE 1060 pg/mL (0-100)
[2016-10-01] MEDS: BUMETANIDE 0.25 MG/ML 4 ML VIAL IVP SCH ×3 (08:37→21:58)
[2016-10-01 09:00] LABS: PROTHROMBIN TIME 10.8 SEC (9.4-11.6)
[2016-10-01] MEDS ORDERED: METOLAZONE 5 MG TABLET PO SCH (09:00)
[2016-10-01 09:33] LABS: RBC MORPHOLOGY COMMENT ABNORMAL RBC MORPH
[2016-10-01 09:55] LABS: VITAMIN B12 LEVEL 737 pg/mL (211-911)
[2016-10-01] MEDS: AMIODARONE HCL 200 MG TABLET PO SCH (10:51)
[2016-10-01] MEDS: CLOPIDOGREL BISULFATE 75 MG TABLET PO SCH (10:51)
[2016-10-01] MEDS: PANTOPRAZOLE SODIUM 40 MG/VIAL IVP SCH (10:51)
[2016-10-01] MEDS: LOSARTAN POTASSIUM 50 MG TABLET PO SCH (10:51)
[2016-10-01] MEDS: GABAPENTIN 300 MG CAPSULE PO SCH (10:51)
[2016-10-01] MEDS: METOPROLOL SUCCINATE 100 MG ER TABLET PO SCH ×2 (10:51→21:59)
[2016-10-01] MEDS: ASPIRIN 81 MG EC TABLET PO SCH (10:52)
[2016-10-01] MEDS: DOCUSATE SODIUM 100 MG CAPSULE PO SCH ×2 (10:54→21:58)
[2016-10-01 12:29] LABS: APPEARANCE,UNSPUN,BODY FLUID HAZY (CLEAR); COLOR,BODY FLUID YELLOW (LT YELLOW)
[2016-10-01] MEDS: INSULIN ASPART 100 UNITS/ML SQ PRN ×2 (12:35→22:02)
[2016-10-01 12:49] LABS: GLUCOSE,POINT OF CARE 151 MG/DL (70-110)
[2016-10-01 12:49] LABS: GLUCOSE,POINT OF CARE 69 MG/DL (70-110)
[2016-10-01 12:50] LABS: GLUCOSE COMMENT 1 Received Meds; GLUCOSE,POINT OF CARE 215 MG/DL (70-110)
[2016-10-01] MEDS: CefTRIAXone 1 GM/DEXTROSE 50 ML IV SCH (17:08)
[2016-10-01] MEDS: INSULIN DETEMIR 100 UNITS/ML SQ SCH (21:00)
[2016-10-01] MEDS ORDERED: CARBAMIDE PEROXIDE 6.5% 15 ML OTIC SOLUTION AU ONE (22:00)
[2016-10-01] MEDS: HYDROCODONE/ACETAMINOPHEN 5-325 MG TABLET PO PRN (22:07)
[2016-10-02 05:35] VITALS: BP 105/55
[2016-10-02 07:16] LABS: CALCIUM, TOTAL 8.5 mg/dL (8.8-10.5); CREATININE 1.32 mg/dL (0.60-1.30); MAGNESIUM 1.9 mg/dL (1.80-2.40); PHOSPHORUS 4.2 mg/dL (2.5-4.9); POTASSIUM 3.6 mmol/L (3.5-5.1)
[2016-10-02 07:17] LABS: GLUCOSE,POINT OF CARE 90 MG/DL (70-110)
[2016-10-02 07:17] LABS: GLUCOSE,POINT OF CARE 197 MG/DL (70-110)
[2016-10-02 07:17] LABS: GLUCOSE,POINT OF CARE 117 MG/DL (70-110)
[2016-10-02 07:21] VITALS: BP_SYST 124; BP_SYST 92; BP_DIAS 48; BP_DIAS 88
[2016-10-02] MEDS: PANTOPRAZOLE SODIUM 40 MG/VIAL IVP SCH (08:27)
[2016-10-02] MEDS: METOPROLOL SUCCINATE 100 MG ER TABLET PO SCH ×2 (08:27→21:00)
[2016-10-02] MEDS: LOSARTAN POTASSIUM 50 MG TABLET PO SCH (08:27)
[2016-10-02] MEDS: BUMETANIDE 0.25 MG/ML 4 ML VIAL IVP SCH ×2 (08:27→21:39)
[2016-10-02] MEDS: AMIODARONE HCL 200 MG TABLET PO SCH (08:27)
[2016-10-02] MEDS: DOCUSATE SODIUM 100 MG CAPSULE PO SCH ×2 (08:27→21:36)
[2016-10-02] MEDS: GABAPENTIN 300 MG CAPSULE PO SCH (08:27)
[2016-10-02] MEDS: ASPIRIN 81 MG EC TABLET PO SCH (08:27)
[2016-10-02] MEDS: CLOPIDOGREL BISULFATE 75 MG TABLET PO SCH (08:28)
[2016-10-02] MEDS: METOLAZONE 2.5 MG TABLET PO SCH (08:34)
[2016-10-02 11:41] VITALS: BP_SYST 109; BP_SYST 126; BP_DIAS 61; BP_DIAS 67
[2016-10-02] MEDS: HYDROCODONE/ACETAMINOPHEN 5-325 MG TABLET PO PRN (14:37)
[2016-10-02 15:13] LABS: TOTAL PROTEIN,BODY FLUID,REF 2.6 g/dL
[2016-10-02 15:15] VITALS: BP 118/64
[2016-10-02 16:52] LABS: GLUCOSE,POINT OF CARE 124 MG/DL (70-110)
[2016-10-02] MEDS: CefTRIAXone 1 GM/DEXTROSE 50 ML IV SCH (17:25)
[2016-10-02] MEDS: INSULIN ASPART 100 UNITS/ML SQ PRN ×2 (17:28→22:43)
[2016-10-02 19:52] VITALS: BP 96/54
[2016-10-03] VITALS (7 sets, daily range): BP systolic 93–110; BP diastolic 50–64
[2016-10-03 07:13] LABS: HEMOGLOBIN A1C 8.4 % (4.5-6.2)
[2016-10-03] MEDS ORDERED: INSULIN DETEMIR 100 UNITS/ML SQ SCH (08:00)
[2016-10-03 08:47] LABS: CALCIUM, TOTAL 8.5 mg/dL (8.8-10.5); CREATININE 1.46 mg/dL (0.60-1.30); MAGNESIUM 1.9 mg/dL (1.80-2.40); PHOSPHORUS 4.5 mg/dL (2.5-4.9); POTASSIUM 3.7 mmol/L (3.5-5.1)
[2016-10-03] MEDS: METOPROLOL SUCCINATE 100 MG ER TABLET PO SCH (09:00)
[2016-10-03] MEDS: ASPIRIN 81 MG EC TABLET PO SCH (09:26)
[2016-10-03] MEDS: GABAPENTIN 300 MG CAPSULE PO SCH (09:26)
[2016-10-03] MEDS: DOCUSATE SODIUM 100 MG CAPSULE PO SCH ×2 (09:27→21:40)
[2016-10-03] MEDS: PANTOPRAZOLE SODIUM 40 MG/VIAL IVP SCH (09:27)
[2016-10-03] MEDS: METOLAZONE 2.5 MG TABLET PO SCH (09:27)
[2016-10-03] MEDS: BUMETANIDE 0.25 MG/ML 4 ML VIAL IVP SCH ×2 (09:27→21:40)
[2016-10-03] MEDS: CLOPIDOGREL BISULFATE 75 MG TABLET PO SCH (09:27)
[2016-10-03 11:28] LABS: GLUCOSE COMMENT 1 Received Meds; GLUCOSE,POINT OF CARE 154 MG/DL (70-110)
[2016-10-03 11:28] LABS: GLUCOSE COMMENT 1 Received Meds; GLUCOSE,POINT OF CARE 194 MG/DL (70-110)
[2016-10-03 11:32] LABS: GLUCOSE,POINT OF CARE 138 MG/DL (70-110)
[2016-10-03 11:32] LABS: GLUCOSE COMMENT 1 Received Meds; GLUCOSE,POINT OF CARE 161 MG/DL (70-110)
[2016-10-03 11:37] LABS: ABG A-A DIFF O2 62.6 mmHg (10-20.0); ABG BASE EXCESS 12.5 mmol/L (-2.0-3.0); ABG HCO3 34.5 mmol/L (22.0-26.0); ABG OXYHEMOGLOBIN 97.1 % (94.0-100.0); ABG PCO2 53 mmHg (35-45); ABG PH 7.453 (7.35-7.450); ALLEN TEST, BLOOD GAS Positive; TEMPERATURE, FAHRENHEIT, BG 98.9 FAHREN (96.0-98.6)
[2016-10-03] MEDS: INSULIN ASPART 100 UNITS/ML SQ PRN ×3 (12:10→21:52)
[2016-10-03 15:02] LABS: GLUCOSE COMMENT 1 Received Meds; GLUCOSE,POINT OF CARE 174 MG/DL (70-110)
[2016-10-03] MEDS ORDERED: NITR100C4 PO (15:33)
[2016-10-03] MEDS ORDERED: INSU100V12 SQ (15:35)
[2016-10-03] MEDS ORDERED: ZARO2.5 PO (15:36)
[2016-10-03] MEDS ORDERED: HYDR-309 PO (15:37)
[2016-10-03] MEDS ORDERED: ONDA4 PO (15:38)
[2016-10-03] MEDS ORDERED: PERCT PO (15:40)
[2016-10-03] MEDS ORDERED: OXYC-38 PO (15:40)
[2016-10-03 18:07] LABS: GLUCOSE COMMENT 1 Received Meds; GLUCOSE,POINT OF CARE 153 MG/DL (70-110)
[2016-10-03] MEDS: CefTRIAXone 1 GM/DEXTROSE 50 ML IV SCH (18:09)
[2016-10-04 03:52] LABS: GLUCOSE COMMENT 1 Received Meds; GLUCOSE,POINT OF CARE 141 MG/DL (70-110)
[2016-10-04 04:38] VITALS: BP 104/56
[2016-10-04 06:39] LABS: CALCIUM, TOTAL 8.5 mg/dL (8.8-10.5); CREATININE 1.36 mg/dL (0.60-1.30); MAGNESIUM 1.9 mg/dL (1.80-2.40); PHOSPHORUS 3.9 mg/dL (2.5-4.9); POTASSIUM 3.1 mmol/L (3.5-5.1)
[2016-10-04 07:27] VITALS: BP 98/62
[2016-10-04] MEDS: ASPIRIN 81 MG EC TABLET PO SCH (08:55)
[2016-10-04] MEDS: GABAPENTIN 300 MG CAPSULE PO SCH (08:55)
[2016-10-04] MEDS: CLOPIDOGREL BISULFATE 75 MG TABLET PO SCH (08:55)
[2016-10-04] MEDS: METOLAZONE 2.5 MG TABLET PO SCH (08:55)
[2016-10-04] MEDS ORDERED: POTASSIUM CHLORIDE 20 MEQ ER TABLET PO ONE (09:00)
[2016-10-04] MEDS ORDERED: BISACODYL 5 MG EC TABLET PO PRN (09:00)
[2016-10-04] MEDS ORDERED: DOCUSATE SODIUM 250 MG CAPSULE PO SCH (09:00)
[2016-10-04] MEDS ORDERED: LACTULOSE 20 GM/30 ML SOLUTION UDCUP PO PRN (09:00)
[2016-10-04] MEDS ORDERED: ZOLPIDEM TARTRATE 5 MG TABLET PO PRN (09:15)
[2016-10-04] MEDS ORDERED: BUMETANIDE 1 MG TABLET PO ONE (10:00)
[2016-10-04] MEDS ORDERED: AcetaZOLAMIDE 250 MG TABLET PO SCH (10:00)
[2016-10-04 11:14] VITALS: BP 109/68
[2016-10-04] MEDS ORDERED: ACET250T27 PO (13:30)
[2016-10-04] MEDS ORDERED: DOCU250C91 PO (13:32)
[2016-10-04] MEDS ORDERED: MIRALAX PO (13:34)
[2016-10-04] MEDS ORDERED: HYDR-3965 PO (13:37)
[2016-10-04] MEDS ORDERED: LACT30L PO (13:39)
[2016-10-04 14:33] LABS: GLUCOSE,POINT OF CARE 91 MG/DL (70-110)
[2016-10-04 14:36] LABS: GLUCOSE COMMENT 1 Received Meds; GLUCOSE,POINT OF CARE 152 MG/DL (70-110)
[2016-10-04 14:36] LABS: GLUCOSE,POINT OF CARE 90 MG/DL (70-110)
[2016-10-04 15:17] VITALS: BP 101/61
[2016-10-04] MEDS ORDERED: BUMETANIDE 1 MG TABLET PO SCH (16:00)
[2016-10-05] MEDS ORDERED: LEVOTHYROXINE SODIUM 50 MCG TABLET PO SCH (06:30)
[2016-10-05] MEDS ORDERED: INSULIN DETEMIR 100 UNITS/ML SQ SCH (08:00)
[2016-10-05] MEDS ORDERED: PANTOPRAZOLE SODIUM 40 MG DR TABLET PO SCH (09:00)
[2016-10-05] MEDS ORDERED: CHOLECALCIFEROL (VIT D3) 1,000 UNITS TABLET PO SCH (09:00)
[2016-10-05] MEDS ORDERED: POLYETHYLENE GLYCOL 3350 17 GM PACKET PO SCH (09:00)
[2016-10-05] MEDS ORDERED: FOLIC ACID 1 MG TABLET PO SCH (09:00)
[2016-11-01] MEDS ORDERED: ACET250T27 PO ×2 (12:52→12:53)
[2016-11-01] MEDS ORDERED: AUD NEB (12:52)
[2016-11-01] MEDS ORDERED: FLUT16H NASAL (13:12)
[2016-11-01] MEDS ORDERED: METO-325 PO (13:13)
[2016-11-01] MEDS ORDERED: LEVO250 PO (13:15)
== END 2016-10-04 16:05 | DRG 280 ==
LOC: EMS 23:50 → AHU 09-29 11:07 → 5N 09-29 18:50
PROVIDERS: ADMIT Internal Medicine Geriatric Medicine; ATTEND Internal Medicine Geriatric Medicine
PROC: 0W993ZZ Drainage of Right Pleural Cavity, Percutaneous Approach (ICD-10-PCS; principal; 2016-10-01)
DX: I21.4 Non-ST elevation (NSTEMI) myocardial infarction (principal); E43 Unspecified severe protein-calorie malnutrition; I50.43 Acute on chronic combined systolic (congestive) and diastolic (congestive) heart failure; I13.0 Hypertensive heart and chronic kidney disease with heart failure and stage 1 through stage 4 chronic kidney disease, or unspecified chronic kidney disease; N39.0 Urinary tract infection, site not specified; D61.818 Other pancytopenia; J80 Acute respiratory distress syndrome; E87.4 Mixed disorder of acid-base balance; E03.9 Hypothyroidism, unspecified; E11.22 Type 2 diabetes mellitus with diabetic chronic kidney disease; E78.5 Hyperlipidemia, unspecified; I25.10 Atherosclerotic heart disease of native coronary artery without angina pectoris; N18.3 Chronic kidney disease, stage 3 (moderate); I25.5 Ischemic cardiomyopathy; Z66 Do not resuscitate; J44.9 Chronic obstructive pulmonary disease, unspecified; I48.2 Chronic atrial fibrillation; E11.21 Type 2 diabetes mellitus with diabetic nephropathy; I34.0 Nonrheumatic mitral (valve) insufficiency; I27.2 Other secondary pulmonary hypertension; R26.9 Unspecified abnormalities of gait and mobility; Z53.29 Procedure and treatment not carried out because of patient's decision for other reasons; I07.1 Rheumatic tricuspid insufficiency; Z68.29 Body mass index [BMI] 29.0-29.9, adult; E87.6 Hypokalemia; K59.00 Constipation, unspecified; Z88.1 Allergy status to other antibiotic agents; Z88.8 Allergy status to other drugs, medicaments and biological substances; Z79.2 Long term (current) use of antibiotics; Z79.01 Long term (current) use of anticoagulants; Z95.1 Presence of aortocoronary bypass graft; Z95.5 Presence of coronary angioplasty implant and graft; Z79.82 Long term (current) use of aspirin; Z79.4 Long term (current) use of insulin; Z79.51 Long term (current) use of inhaled steroids; Z79.899 Other long term (current) drug therapy
CPT/HCPCS: 32555; 51702; 71250; 76942; 82465; 82607; 82746; 82805; 82945; 82962; 83036; 83605; 83615; 83735; 83986; 84100; 84157; 87015; 87040; 87070; 87081; 87086; 87101; 87205; 88108; 89051; 93005; 93306; 93970; 94640; 96374; 97116; 97163; 97166; 97530; 99291; C9113; J0696; J1815; J3490; J7050

== ENCOUNTER 2016-10-20 01:41 | Inpatient (IN) | payer MEDICARE ==
[~2016-10-20] VITALS: Ht 175.3 cm; Wt 53.6 kg
[~2016-10-20 01:41] MED LIST changes: +ACET250T27 PO; +DOCU250C91 PO; +HYDR-309 PO; +HYDR-3965 PO; +INSU100V12 SQ; +LACT30L PO; +MIRALAX PO; +NITR100C4 PO; +ONDA4 PO; +OXYC-38 PO; +PERCT PO; +VITAD1000 PO; -VITAD400 PO; +ZARO2.5 PO
[2016-10-20] MEDS ORDERED: FLUTICASONE PROPIONATE 50 MCG/SPRAY 16 GM NASAL SPRAY NASAL ONE (02:30)
[2016-10-20] MEDS ORDERED: ACETAMINOPHEN 500 MG TABLET PO ONE (02:30)
[2016-10-20] MEDS ORDERED: ONDANSETRON HCL 4 MG/2 ML VIAL IVP ONE (02:30)
[2016-10-20 02:33] LABS: BASOPHILS # (AUTO) 0.02 K/uL (0.00-0.20); BASOPHILS % (AUTO) 0.6 % (0.0-2.0); EOSINOPHILS # (AUTO) 0.02 K/uL (0.00-0.70); EOSINOPHILS % (AUTO) 0.53 % (1.0-6.0); HEMATOCRIT 34.8 % (36-46); HEMOGLOBIN 11.4 g/dL (12.0-16.0); LYMPHOCYTES # (AUTO) 0.9 K/uL (1.0-4.8); LYMPHOCYTES % (AUTO) 26.9 % (22.0-44.0); MEAN CORPUSCULAR HEMOGLOBIN 33.5 pg (26.0-34.0); MEAN CORPUSCULAR HGB CONC 32.7 G/dL (31.0-37.0); MEAN CORPUSCULAR VOLUME 102 fL (80-100); MONOCYTES # (AUTO) 0.3 K/uL (0.1-1.0); MONOCYTES % (AUTO) 9.8 % (2.0-9.0); NEUTROPHILS # (AUTO) 2.1 K/uL (1.8-7.7); NEUTROPHILS % (AUTO) 62.1 % (40.0-70.0); PLATELET COUNT (AUTO) 157 K/uL (150-450); RED BLOOD CELL COUNT(AUTO) 3.39 MIL/uL (4.00-5.20); RED CELL DISTRIBUTION WIDTH 15.9 % (11.5-14.5); WHITE BLOOD COUNT (AUTO) 3.4 K/uL (4.5-11.0)
[2016-10-20 02:38] LABS: ANION GAP 6 mmol/L (8-16); CALCIUM, TOTAL 9.4 mg/dL (8.8-10.5); CARBON DIOXIDE 40 mmol/L (22-29); CHLORIDE 94 mmol/L (98-107); CREATININE 1.77 mg/dL (0.60-1.30); GLOMERULAR FILTR. RATE CALC 33 mL/min (>60); POTASSIUM 3.3 mmol/L (3.5-5.1); SODIUM SERUM 140 mmol/L (136-145); UREA NITROGEN, BLOOD 81 mg/dL (7-18)
[2016-10-20 02:39] LABS: PROTHROMBIN TIME 10.7 SEC (9.4-11.6)
[2016-10-20] MEDS ORDERED: DILTIAZEM HCL 5 MG/ML 5 ML VIAL IVP ONE ×2 (02:45→05:45)
[2016-10-20] MEDS ORDERED: SODIUM CHLORIDE 0.9% 250 ML IV ONE (02:45)
[2016-10-20] MEDS ORDERED: CALCIUM GLUCONATE 100 MG/ML 10 ML IVP ONE ×2 (02:45→05:45)
[2016-10-20 03:02] LABS: ALANINE AMINOTRANSFERASE 20 U/L (12-78); ALBUMIN 3.6 g/dL (3.4-5.0); ASPARTATE AMINOTRANSFERASE 24 U/L (15-37); BILIRUBIN,TOTAL 0.5 mg/dL (0.1-1.0); CREATINE KINASE MB 1.1 ng/mL (0-5); CREATINE KINASE, TOTAL 92 U/L (26-192); TOTAL PROTEIN, SERUM 7.6 g/dL (6.4-8.2)
[2016-10-20] MEDS ORDERED: SODIUM CHLORIDE 0.9% 50 ML ONE (03:04)
[2016-10-20 03:10] LABS: B-TYPE NATRIURETIC PEPTIDE 753 pg/mL (0-100)
[2016-10-20 03:28] LABS: APPEARANCE,URINE CLEAR (CLEAR); GLUCOSE, URINE (UA) NEGATIVE (NEGATIVE); KETONES,URINE NEGATIVE (NEGATIVE); LEUKOCYTE ESTERASE ,URINE NEGATIVE (NEGATIVE); OCCULT BLOOD,URINE SMALL (NEGATIVE); PROTEIN,URINE NEGATIVE (NEGATIVE)
[2016-10-20 03:29] LABS: ADD UA MICROSCOPIC YES
[2016-10-20 03:39] LABS: SQUAMOUS EPITHELIAL CELL,UR Few /LPF (None Seen)
[2016-10-20] MEDS ORDERED: ASPIRIN 325 MG TABLET PO ONE (03:45)
[2016-10-20] MEDS ORDERED: ONDANSETRON HCL 4 MG/2 ML VIAL IVP PRN ×2 (03:45→10:30)
[2016-10-20] MEDS ORDERED: POTASSIUM CHLORIDE 10% 40 MEQ/30 ML LIQUID UDCUP PO ONE (03:45)
[2016-10-20] MEDS ORDERED: ACETAMINOPHEN 325 MG TABLET PO PRN (03:45)
[2016-10-20] MEDS ORDERED: 0.9% SODIUM CHLORIDE 10 ML SYRINGE IVP PRN (03:45)
[2016-10-20] MEDS ORDERED: NITROGLYCERIN 2% (1 GM=INCH) PACKET TP ONE (04:00)
[2016-10-20] MEDS ORDERED: METOPROLOL TARTRATE 50 MG TABLET PO ONE (04:30)
[2016-10-20] MEDS ORDERED: CLOPIDOGREL BISULFATE 75 MG TABLET PO ONE (04:30)
[2016-10-20] MEDS ORDERED: HEPARIN SODIUM 25000 UNITS/D5W 250 ML IV ONE (05:45)
[2016-10-20] MEDS ORDERED: HEPARIN SODIUM 25000 UNITS/D5W 250 ML IV PRN ×2 (05:45→23:21)
[2016-10-20] MEDS ORDERED: HEPARIN SODIUM,PORCINE 5,000 UNITS/ML VIAL IVP PRN ×4 (05:45→23:30)
[2016-10-20] MEDS ORDERED: HEPARIN SODIUM,PORCINE 5,000 UNITS/ML VIAL IVP ONE ×2 (05:45)
[2016-10-20] MEDS ORDERED: FUROSEMIDE 20 MG/2 ML VIAL IVP ONE (07:00)
[2016-10-20 07:57] LABS: GLUCOSE,POINT OF CARE 98 MG/DL (70-110)
[2016-10-20] MEDS ORDERED: BISACODYL 10 MG RECTAL RECTAL SUPPOSITORY PR PRN (10:30)
[2016-10-20] MEDS ORDERED: ALBUTEROL SULFATE 2.5 MG/0.5 ML NEB SOLUTION NEB PRN (10:30)
[2016-10-20] MEDS ORDERED: MORPHINE SULFATE 2 MG/ML SYRINGE IVP PRN (10:30)
[2016-10-20] MEDS ORDERED: ATORVASTATIN CALCIUM 20 MG TABLET PO SCH (11:00)
[2016-10-20] MEDS ORDERED: CARVEDILOL 6.25 MG TABLET PO SCH (11:00)
[2016-10-20 11:48] LABS: GLUCOSE,POINT OF CARE 74 MG/DL (70-110)
[2016-10-20 18:18] LABS: GLUCOSE,POINT OF CARE 123 MG/DL (70-110)
[2016-10-20] MEDS: ACETAMINOPHEN 325 MG TABLET PO PRN (20:41)
[2016-10-20] MEDS ORDERED: DEXTROSE 50%-WATER 25 GM/50 ML SYRINGE IVP PRN (21:00)
[2016-10-20] MEDS ORDERED: CARVEDILOL 3.125 MG TABLET PO SCH (21:00)
[2016-10-20] MEDS: DOCUSATE SODIUM 100 MG CAPSULE PO SCH (21:30)
[2016-10-20 21:47] LABS: GLUCOSE,POINT OF CARE 181 MG/DL (70-110)
[2016-10-20 23:00] VITALS: BP 103/31
[2016-10-20] MEDS: OxyCODONE HCL/ACETAMINOPHEN 5-325 MG TABLET PO PRN (23:07)
[2016-10-20] MEDS: INSULIN ASPART 100 UNITS/ML SQ PRN (23:25)
[2016-10-21] VITALS (8 sets, daily range): BP systolic 96–117; BP diastolic 61–83
[2016-10-21] MEDS: LEVOTHYROXINE SODIUM 25 MCG TABLET PO SCH (05:16)
[2016-10-21 05:27] LABS: EOSINOPHILS % (AUTO) 1.9 % (1.0-6.0); HEMATOCRIT 31.6 % (36-46); HEMOGLOBIN 10.5 g/dL (12.0-16.0); LYMPHOCYTES # (AUTO) 0.6 K/uL (1.0-4.8); LYMPHOCYTES % (AUTO) 18.9 % (22.0-44.0); MEAN CORPUSCULAR HEMOGLOBIN 33.6 pg (26.0-34.0); MEAN CORPUSCULAR HGB CONC 33.2 G/dL (31.0-37.0); MEAN CORPUSCULAR VOLUME 101 fL (80-100); MONOCYTES # (AUTO) 0.3 K/uL (0.1-1.0); MONOCYTES % (AUTO) 9.1 % (2.0-9.0); NEUTROPHILS # (AUTO) 2.4 K/uL (1.8-7.7); NEUTROPHILS % (AUTO) 69.1 % (40.0-70.0); PLATELET COUNT (AUTO) 133 K/uL (150-450); RED BLOOD CELL COUNT(AUTO) 3.13 MIL/uL (4.00-5.20); RED CELL DISTRIBUTION WIDTH 16.2 % (11.5-14.5); WHITE BLOOD COUNT (AUTO) 3.4 K/uL (4.5-11.0)
[2016-10-21 06:03] LABS: ALANINE AMINOTRANSFERASE 22 U/L (12-78); ALBUMIN 3.2 g/dL (3.4-5.0); ANION GAP 2 mmol/L (8-16); ASPARTATE AMINOTRANSFERASE 27 U/L (15-37); BILIRUBIN,TOTAL 0.6 mg/dL (0.1-1.0); CALCIUM, TOTAL 9.1 mg/dL (8.8-10.5); CARBON DIOXIDE 40 mmol/L (22-29); CHLORIDE 97 mmol/L (98-107); CREATINE KINASE MB 1.3 ng/mL (0-5); CREATINE KINASE, TOTAL 85 U/L (26-192); CREATININE 1.62 mg/dL (0.60-1.30); GLOMERULAR FILTR. RATE CALC 36 mL/min (>60); POTASSIUM 3.3 mmol/L (3.5-5.1); SODIUM SERUM 139 mmol/L (136-145); THYROID STIMULATING HORMONE 14.94 uIU/mL (0.36-3.74); TOTAL PROTEIN, SERUM 6.9 g/dL (6.4-8.2); UREA NITROGEN, BLOOD 74 mg/dL (7-18)
[2016-10-21 07:09] LABS: HEMOGLOBIN A1C 8.1 % (4.5-6.2)
[2016-10-21 07:14] LABS: B-TYPE NATRIURETIC PEPTIDE 645 pg/mL (0-100)
[2016-10-21] MEDS ORDERED: NITROGLYCERIN 2% (1 GM=INCH) PACKET TP SCH (08:00)
[2016-10-21 08:21] LABS: VITAMIN B12 LEVEL 745 pg/mL (211-911)
[2016-10-21] MEDS: DOCUSATE SODIUM 100 MG CAPSULE PO SCH ×2 (09:01→20:33)
[2016-10-21] MEDS: CLOPIDOGREL BISULFATE 75 MG TABLET PO SCH (09:01)
[2016-10-21] MEDS: PANTOPRAZOLE SODIUM 40 MG DR TABLET PO SCH (09:01)
[2016-10-21] MEDS: ATORVASTATIN CALCIUM 20 MG TABLET PO SCH (09:01)
[2016-10-21] MEDS: ASPIRIN 81 MG EC TABLET PO SCH (09:02)
[2016-10-21] MEDS: CHOLECALCIFEROL (VIT D3) 1,000 UNITS TABLET PO SCH (09:02)
[2016-10-21] MEDS: CARVEDILOL 6.25 MG TABLET PO SCH ×2 (09:02→20:34)
[2016-10-21 09:14] LABS: RBC MORPHOLOGY COMMENT ABNORMAL RBC MORPH
[2016-10-21] MEDS: OxyCODONE HCL/ACETAMINOPHEN 5-325 MG TABLET PO PRN (09:15)
[2016-10-21] MEDS ORDERED: LORazepam 2 MG/ML VIAL IVP PRN (15:00)
[2016-10-21] MEDS ORDERED: POTASSIUM CHLORIDE 20 MEQ ER TABLET PO ONE (16:15)
[2016-10-21] MEDS ORDERED: HYDROCODONE/ACETAMINOPHEN 5-325 MG TABLET PO PRN (16:15)
[2016-10-21] MEDS ORDERED: LACTULOSE 20 GM/30 ML SOLUTION UDCUP PO PRN (16:15)
[2016-10-21] MEDS: FLUTICASONE PROPIONATE 50 MCG/SPRAY 16 GM NASAL SPRAY NASAL SCH ×2 (18:09→20:33)
[2016-10-21] MEDS: PHENYLEPHRINE HCL 1% 15 ML NASAL SPRAY NASAL SCH ×2 (18:09→20:33)
[2016-10-21] MEDS: COD LIVER OIL TP SCH ×2 (18:09→20:34)
[2016-10-21] MEDS: ZINC OXIDE TP SCH ×2 (18:09→20:34)
[2016-10-21] MEDS: AMIODARONE HCL 200 MG TABLET PO SCH ×2 (18:09→20:33)
[2016-10-21] MEDS: INSULIN ASPART 100 UNITS/ML SQ PRN (18:11)
[2016-10-21] MEDS ORDERED: BUMETANIDE 1 MG TABLET PO SCH (21:00)
[2016-10-22 00:05] VITALS: BP 98/55
[2016-10-22 02:07] LABS: GLUCOSE COMMENT 1 Received Meds; GLUCOSE,POINT OF CARE 141 MG/DL (70-110)
[2016-10-22 02:07] LABS: GLUCOSE COMMENT 1 Received Meds; GLUCOSE,POINT OF CARE 214 MG/DL (70-110)
[2016-10-22 02:11] LABS: GLUCOSE,POINT OF CARE 120 MG/DL (70-110)
[2016-10-22 04:52] LABS: GLUCOSE COMMENT 1 Juice/Food/D50 Given; GLUCOSE,POINT OF CARE 72 MG/DL (70-110)
[2016-10-22 05:07] VITALS: BP 122/81
[2016-10-22] MEDS: LEVOTHYROXINE SODIUM 25 MCG TABLET PO SCH (06:11)
[2016-10-22 07:10] LABS: BASOPHILS % (AUTO) 0.6 % (0.0-2.0); EOSINOPHILS % (AUTO) 1.4 % (1.0-6.0); HEMATOCRIT 31.9 % (36-46); HEMOGLOBIN 10.8 g/dL (12.0-16.0); LYMPHOCYTES # (AUTO) 0.7 K/uL (1.0-4.8); LYMPHOCYTES % (AUTO) 20.2 % (22.0-44.0); MEAN CORPUSCULAR HEMOGLOBIN 34.1 pg (26.0-34.0); MEAN CORPUSCULAR HGB CONC 33.8 G/dL (31.0-37.0); MEAN CORPUSCULAR VOLUME 101 fL (80-100); MONOCYTES # (AUTO) 0.4 K/uL (0.1-1.0); MONOCYTES % (AUTO) 10.6 % (2.0-9.0); NEUTROPHILS # (AUTO) 2.3 K/uL (1.8-7.7); NEUTROPHILS % (AUTO) 67.2 % (40.0-70.0); PLATELET COUNT (AUTO) 117 K/uL (150-450); RED BLOOD CELL COUNT(AUTO) 3.16 MIL/uL (4.00-5.20); RED CELL DISTRIBUTION WIDTH 16.3 % (11.5-14.5); WHITE BLOOD COUNT (AUTO) 3.4 K/uL (4.5-11.0)
[2016-10-22 07:25] LABS: ALBUMIN 3.4 g/dL (3.4-5.0); BILIRUBIN,TOTAL 0.8 mg/dL (0.1-1.0); CALCIUM, TOTAL 9.1 mg/dL (8.8-10.5); CREATININE 1.51 mg/dL (0.60-1.30); MAGNESIUM 2.7 mg/dL (1.80-2.40); POTASSIUM 3.9 mmol/L (3.5-5.1)
[2016-10-22 07:40] VITALS: BP 105/80
[2016-10-22] MEDS: CHOLECALCIFEROL (VIT D3) 1,000 UNITS TABLET PO SCH (08:12)
[2016-10-22] MEDS: ASPIRIN 81 MG EC TABLET PO SCH (08:12)
[2016-10-22] MEDS: ATORVASTATIN CALCIUM 20 MG TABLET PO SCH (08:12)
[2016-10-22] MEDS: CLOPIDOGREL BISULFATE 75 MG TABLET PO SCH (08:13)
[2016-10-22] MEDS: PANTOPRAZOLE SODIUM 40 MG DR TABLET PO SCH (08:13)
[2016-10-22] MEDS: BUMETANIDE 1 MG TABLET PO SCH (08:13)
[2016-10-22] MEDS: DOCUSATE SODIUM 100 MG CAPSULE PO SCH ×2 (08:13→21:22)
[2016-10-22] MEDS: COD LIVER OIL TP SCH ×4 (08:14→21:24)
[2016-10-22] MEDS: ZINC OXIDE TP SCH ×4 (08:14→21:24)
[2016-10-22] MEDS: FLUTICASONE PROPIONATE 50 MCG/SPRAY 16 GM NASAL SPRAY NASAL SCH ×2 (08:14→21:22)
[2016-10-22] MEDS: PHENYLEPHRINE HCL 1% 15 ML NASAL SPRAY NASAL SCH ×2 (08:14→21:23)
[2016-10-22] MEDS: INSULIN DETEMIR 100 UNITS/ML SQ SCH (08:16)
[2016-10-22 08:37] LABS: GLUCOSE,POINT OF CARE 85 MG/DL (70-110)
[2016-10-22 08:37] LABS: GLUCOSE,POINT OF CARE 111 MG/DL (70-110)
[2016-10-22 10:34] LABS: RBC MORPHOLOGY COMMENT ABNORMAL RBC MORPH
[2016-10-22 11:51] VITALS: BP 118/65
[2016-10-22] MEDS: METOPROLOL TARTRATE 50 MG TABLET PO SCH ×2 (12:05→21:22)
[2016-10-22] MEDS: INSULIN ASPART 100 UNITS/ML SQ PRN ×2 (12:05→21:26)
[2016-10-22 15:17] VITALS: BP 114/59
[2016-10-22 19:41] VITALS: BP 113/77
[2016-10-22 19:46] LABS: GLUCOSE,POINT OF CARE 70 MG/DL (70-110)
[2016-10-22 20:02] LABS: GLUCOSE,POINT OF CARE 158 MG/DL (70-110)
[2016-10-22] MEDS: MUPIROCIN CALCIUM 2% 22 GM OINTMENT NASAL SCH (21:23)
[2016-10-23 00:03] VITALS: BP 106/67
[2016-10-23 05:30] VITALS: BP 110/64
[2016-10-23] MEDS: LEVOTHYROXINE SODIUM 25 MCG TABLET PO SCH (06:14)
[2016-10-23] MEDS: ACETAMINOPHEN 325 MG TABLET PO PRN (06:25)
[2016-10-23 06:44] LABS: BASOPHILS % (AUTO) 0.5 % (0.0-2.0); EOSINOPHILS % (AUTO) 1.1 % (1.0-6.0); HEMOGLOBIN 10.8 g/dL (12.0-16.0); LYMPHOCYTES # (AUTO) 0.7 K/uL (1.0-4.8); LYMPHOCYTES % (AUTO) 20.6 % (22.0-44.0); MEAN CORPUSCULAR HEMOGLOBIN 33.9 pg (26.0-34.0); MEAN CORPUSCULAR HGB CONC 33.7 G/dL (31.0-37.0); MEAN CORPUSCULAR VOLUME 101 fL (80-100); MONOCYTES # (AUTO) 0.5 K/uL (0.1-1.0); MONOCYTES % (AUTO) 14.2 % (2.0-9.0); NEUTROPHILS % (AUTO) 63.6 % (40.0-70.0); PLATELET COUNT (AUTO) 94 K/uL (150-450); RED BLOOD CELL COUNT(AUTO) 3.18 MIL/uL (4.00-5.20); RED CELL DISTRIBUTION WIDTH 16.2 % (11.5-14.5); WHITE BLOOD COUNT (AUTO) 3.2 K/uL (4.5-11.0)
[2016-10-23 07:00] LABS: ALBUMIN 3.3 g/dL (3.4-5.0); BILIRUBIN,TOTAL 0.7 mg/dL (0.1-1.0); CALCIUM, TOTAL 8.7 mg/dL (8.8-10.5); CREATININE 1.56 mg/dL (0.60-1.30); MAGNESIUM 2.7 mg/dL (1.80-2.40); TOTAL PROTEIN, SERUM 7.1 g/dL (6.4-8.2)
[2016-10-23 07:28] VITALS: BP 137/70
[2016-10-23 07:32] LABS: RBC MORPHOLOGY COMMENT ABNORMAL RBC MORPH
[2016-10-23 07:47] LABS: GLUCOSE COMMENT 1 Juice/Food/D50 Given; GLUCOSE,POINT OF CARE 64 MG/DL (70-110)
[2016-10-23 07:47] LABS: GLUCOSE,POINT OF CARE 127 MG/DL (70-110)
[2016-10-23] MEDS: INSULIN DETEMIR 100 UNITS/ML SQ SCH (08:00)
[2016-10-23] MEDS ORDERED: METOPROLOL TARTRATE 50 MG TABLET PO SCH (09:00)
[2016-10-23] MEDS: MUPIROCIN CALCIUM 2% 22 GM OINTMENT NASAL SCH (09:04)
[2016-10-23] MEDS: BUMETANIDE 1 MG TABLET PO SCH (09:05)
[2016-10-23] MEDS: PHENYLEPHRINE HCL 1% 15 ML NASAL SPRAY NASAL SCH (09:05)
[2016-10-23] MEDS: FLUTICASONE PROPIONATE 50 MCG/SPRAY 16 GM NASAL SPRAY NASAL SCH (09:05)
[2016-10-23] MEDS: ASPIRIN 81 MG EC TABLET PO SCH (09:06)
[2016-10-23] MEDS: PANTOPRAZOLE SODIUM 40 MG DR TABLET PO SCH (09:06)
[2016-10-23] MEDS: CLOPIDOGREL BISULFATE 75 MG TABLET PO SCH (09:06)
[2016-10-23] MEDS: ATORVASTATIN CALCIUM 20 MG TABLET PO SCH (09:06)
[2016-10-23] MEDS: DOCUSATE SODIUM 100 MG CAPSULE PO SCH (09:06)
[2016-10-23] MEDS: CHOLECALCIFEROL (VIT D3) 1,000 UNITS TABLET PO SCH (09:06)
[2016-10-23] MEDS: ZINC OXIDE TP SCH ×3 (09:07→16:47)
[2016-10-23] MEDS: COD LIVER OIL TP SCH ×3 (09:07→16:47)
[2016-10-23 12:00] VITALS: BP 124/62
[2016-10-23] MEDS: INSULIN ASPART 100 UNITS/ML SQ PRN (12:03)
[2016-10-23 15:29] VITALS: BP 125/76
[2016-10-24 01:37] LABS: GLUCOSE COMMENT 1 Received Meds; GLUCOSE,POINT OF CARE 181 MG/DL (70-110)
[2016-10-31 14:43] LABS: GLUCOSE,POINT OF CARE 171 MG/DL (70-110)
[2016-10-31 14:43] LABS: GLUCOSE,POINT OF CARE 100 MG/DL (70-110)
[2016-10-31 14:43] LABS: GLUCOSE COMMENT 1 Received Meds; GLUCOSE,POINT OF CARE 186 MG/DL (70-110)
[2016-11-01] MEDS ORDERED: AUD NEB (12:52)
[2016-11-01] MEDS ORDERED: ACET250T27 PO ×2 (12:52→12:53)
[2016-11-01] MEDS ORDERED: FLUT16H NASAL (13:12)
[2016-11-01] MEDS ORDERED: METO-325 PO (13:13)
[2016-11-01] MEDS ORDERED: LEVO250 PO (13:15)
== END 2016-10-23 17:25 | DRG 280 ==
LOC: EMS 01:43 → ICU 17:59 → 5S 10-21 12:33
PROVIDERS: ADMIT Internal Medicine; ATTEND Internal Medicine
DX: I21.4 Non-ST elevation (NSTEMI) myocardial infarction (principal); E43 Unspecified severe protein-calorie malnutrition; I50.21 Acute systolic (congestive) heart failure; I13.0 Hypertensive heart and chronic kidney disease with heart failure and stage 1 through stage 4 chronic kidney disease, or unspecified chronic kidney disease; D61.818 Other pancytopenia; N17.9 Acute kidney failure, unspecified; I50.42 Chronic combined systolic (congestive) and diastolic (congestive) heart failure; Z68.1 Body mass index [BMI] 19.9 or less, adult; E11.21 Type 2 diabetes mellitus with diabetic nephropathy; E11.40 Type 2 diabetes mellitus with diabetic neuropathy, unspecified; E11.22 Type 2 diabetes mellitus with diabetic chronic kidney disease; I48.91 Unspecified atrial fibrillation; I25.10 Atherosclerotic heart disease of native coronary artery without angina pectoris; N18.3 Chronic kidney disease, stage 3 (moderate); J45.909 Unspecified asthma, uncomplicated; J44.9 Chronic obstructive pulmonary disease, unspecified; E03.9 Hypothyroidism, unspecified; R26.9 Unspecified abnormalities of gait and mobility; E11.65 Type 2 diabetes mellitus with hyperglycemia; J30.9 Allergic rhinitis, unspecified; R06.00 Dyspnea, unspecified; E11.649 Type 2 diabetes mellitus with hypoglycemia without coma; L30.9 Dermatitis, unspecified; E87.6 Hypokalemia; Z79.82 Long term (current) use of aspirin; Z88.1 Allergy status to other antibiotic agents; Z22.322 Carrier or suspected carrier of Methicillin resistant Staphylococcus aureus; Z79.4 Long term (current) use of insulin; I25.2 Old myocardial infarction; Z88.8 Allergy status to other drugs, medicaments and biological substances; Z95.1 Presence of aortocoronary bypass graft; Z79.899 Other long term (current) drug therapy
CPT/HCPCS: 51702; 70210; 70450; 82306; 82607; 82746; 82962; 83036; 83735; 84439; 84443; 87081; 93005; 93306; 96365; 96366; 96374; 96375; 97162; 97165; 99291; J0610; J1644; J2270; J2405; J3490; J7040; J7050